=== PATIENT | female | born 1975 | race American Indian/Alaskan Native ===

== ENCOUNTER 2016-06-22 09:57 | Emergency (ER) | payer MEDICAID ==
--- NOTE | 2016-06-22 12:30 | Emergency Department Report ---
Entered by DELMAR LARA, acting as scribe for RUBEN STEWART PA. Chief Complaint: Abdominal Pain Stated Complaint: DIFFICULTY URINATING,BACK PAIN Time Seen by Provider: 06/22/16 12:08 - HPI History of Present Illness: 41 y/o female presents c/o inability to void since 2 days ago. Sx include fever and chills. Pt notes Hx of kidney stones and kidney infection. - ROS Review of Systems: as noted in HPI - Exam Vital Signs: Vital Signs 06/22/16 12:00 Temperature 98.2 F Pulse Rate 68 Respiratory 16 Rate Blood Pressure 150/100 O2 Sat by Pulse 100 Oximetry Physical Exam: General: 41 y/o female in no acute distress. Well-developed, well-nourished. CV: Regular rate and rhythm. No murmurs rubs or gallops. Lungs: Clear to auscultation bilaterally. Abdomen: abd distended and TTP. No guarding. Normal bowel sounds. Mini Neuro: Alert and oriented 3. MSE screening note: Focused history and physical exam performed. Due to findings the following was ordered: ED Disposition for MSE Condition: Stable Instructions: Abdominal Pain (ED) This documentation as recorded by the scribe,DELMAR LARA,accurately reflects the service I personally performed and the decisions made by me,RUBEN STEWART PA.
[2016-06-22 12:34] LABS: Basophils % (Auto) 0.4 % (0.0-1.8); Eosinophils % (Auto) 1.6 % (0.0-4.3); Hematocrit 38.3 % (30.3-42.9); Hemoglobin 12.5 gm/dl (10.1-14.3); Mean Corpuscular HGB Conc 33 % (30-34); Mean Corpuscular Hemoglobin 26 pg (28-32); Mean Corpuscular Volume 80 fl (79-97); Platelet Count 276 K/mm3 (140-440); Red Blood Count 4.76 M/mm3 (3.65-5.03); Red Cell Distribution Width 16.1 % (13.2-15.2); White Blood Count 6.4 K/mm3 (4.5-11.0)
[2016-06-22 12:48] LABS: Alanine Aminotransferase 41 units/L (7-56); Albumin 3.7 g/dL (3.9-5); Albumin/Globulin Ratio 0.8 %; Alkaline Phosphatase 89 units/L (35-129); Anion Gap 17 mmol/L; BUN/Creatinine Ratio 13.33; Blood Urea Nitrogen 8 mg/dL (7-17); Calcium 9.4 mg/dL (8.4-10.2); Carbon Dioxide 25 mmol/L (22-30); Chloride 99.5 mmol/L (98-107); Glucose 71 mg/dL (65-100); Lipase 30 units/L (13-60); Potassium 4.2 mmol/L (3.6-5.0); Sodium 137 mmol/L (137-145); Total Protein 8.1 g/dL (6.3-8.2)
[2016-06-22 13:32] LABS: Bilirubin,Urine NEG (Negative); Blood,Urine NEG (Negative); Ketones,Urine NEG (Negative); Leukocyte Esterase,Urine NEG (Negative); Nitrite,Urine NEG (Negative); Protein,Urine <15 mg/dL mg/dL (Negative); Urobilinogen,Urine < 2.0 mg/dL (<2.0); WBC,Urine < 1.0 /HPF (0.0-6.0)
[2016-06-22 13:34] LABS: RBC,Urine < 1.0 /HPF (0.0-6.0)
--- NOTE | 2016-06-22 15:32 | Cat Scan Report ---
CT of the abdomen and pelvis without contrast. History: Flank pain. Findings: There are 3 stones in the right kidney, the largest of which measures 4 mm in diameter. A 3.8 center in diameter cyst is seen in the upper pole of the right kidney. A 1 cm cyst is in the lower pole of the right kidney. 3 tiny stones measuring 2 mm each are seen in the left kidney. There is no evidence of hydronephrosis or ureteral dilatation. The abdominal viscera are otherwise unremarkable. No abnormal fluid collections or mesenteric inflammation is seen. Impression: Bilateral nephrolithiasis without obstruction. 2. 2 right renal cysts are described.
[2016-06-22] MEDS ORDERED: NACL 0.9% 1000 ML 1,000 ML IV ONE (15:52)
[2016-06-22] MEDS ORDERED: TORADOL IV ONE (15:54)
[2016-06-22 17:30] VITALS: BP 124/78
--- NOTE | 2016-06-22 18:02 | Emergency Department Report ---
ED Female HPI - General Chief complaint: Abdominal Pain Stated complaint: DIFFICULTY URINATING,BACK PAIN Time Seen by Provider: 06/22/16 12:18 Source: patient Mode of arrival: Ambulatory Limitations: No Limitations - History of Present Illness Initial comments: Patient reports inability to urinate for approximately 2 days. Reports hx of kidney stones. reports that she had similar symptoms with kidney stones Complaint: other (suprapubic pain) -: Gradual, days(s) Location: suprapubic Radiation: non-radiating Severity: mild Severity scale (0 -10): 3 Quality: aching Consistency: constant Improves with: none Worsens with: none Are you Now?: No Associated Symptoms: abdominal pain. denies: vaginal discharge, vaginal bleeding, nausea/vomiting, fever/chills, headaches, loss of appetite, dysuria, hematuria, rash, seizure, shortness of breath, syncope, weakness - Related Data Home Medications Medication Instructions Recorded Confirmed Last Taken No Known Home Medications [No 06/22/16 06/22/16 Unknown Reported Home Medications] Allergies Allergy/AdvReac Type Severity Reaction Status Date / Time No Known Allergies Allergy Verified 04/10/16 15:38 ED Review of Systems ROS: Stated complaint: DIFFICULTY URINATING,BACK PAIN Other details as noted in HPI Other: GENERAL: No weight change, fatigue, weakness, fever, chills, or night sweats SKIN: No changes in skin or hair, no itching, no rashes, no jaundice HEAD: No trauma, headache, or visual changes EYES: No blurriness, tearing, itching, acute visual loss, conjunctival discoloration, or scleral icterus EARS: No hearing loss, tinnitus, vertigo, or earache NOSE: No rhinorrhea, stuffiness, sneezing, itching, or epistaxis MOUTH: No bleeding gums, hoarseness, sore throat, or swelling CARDIAC: No new murmur, chest pain, palpitations, dyspnea on exertion, orthopnea , PND, or edema RESPIRATORY: No shortness of breath, wheeze, cough, sputum production, hemoptysis, pneumonia, asthma, bronchitis, or emphysema GI: No change in appetite, vomiting, dysphagia, change in bowel frequency, diarrhea, constipation, bleeding, hematemesis, melena, hematochezia MUSCULOSKELETAL: No muscle weakness, joint stiffness, decrease in range of motion, redness, swelling, tenderness NEUROLOGIC: No loss of sensation, numbness, tingling, tremors, weakness, paralysis, seizures HEMATOLOGIC: No anemia, easy bruising, bleeding, petechiae, or purpura ENDOCRINE: No hot or cold intolerance, sweating, polyuria, polydipsia or, polyphagia no thyroid problems PSYCHIATRIC: No change in mood, no anxiety, no depression ED Past Medical Hx - Past Medical History Hx Heart Attack/AMI: No Hx Congestive Heart Failure: No Hx Diabetes: No Hx Kidney Stones: Yes Hx Asthma: No Hx COPD: No - Surgical History Hx Cholecystectomy: Yes Additional Surgical History: TUBAL LIGATION AND REVERSAL. . KIDNEY STONE REMOVED - Social History Smoking Status: Never Smoker Substance Use Type: Alcohol - Medications Home Medications: Home Medications Medication Instructions Recorded Confirmed Last Taken Type No Known Home Medications [No 06/22/16 06/22/16 Unknown History Reported Home Medications] ED Physical Exam - General Limitations: No Limitations - Other Other exam information: GENERAL: Patient in no acute distress HEAD: Normocephalic, atraumatic EYES: PERRLA, EOM intact, no scleral icterus, no papilledema, no conjunctival hemorrhage, visual morris and acuity wnl, NOSE: No tenderness, discharge, sinus tenderness MOUTH: No erythema, bleeding, exudate HEART: Regular rate and rhythm, no murmur, S1-S2 are auscultated, pulses are symmetric LUNGS: No wheezing, rales, rhonchi, bilateral breath sounds ABDOMEN: Normal bowel sounds, no tenderness, no rebound, no guarding, no masses , no CVA tenderness MUSCULOSKELETAL: Normal joint range of motion, no redness, no swelling, no tenderness NEUROLOGIC: GCS 15, Alert and Oriented x3, Cranial nerves intact, normal sensation, normal strength, normal gait, no cerebellar deficit PSYCHIATRIC: No homicidal or suicidal ideation, no anxiety, no depression, no hallucinations SKIN: Skin is warm and dry, no wounds, no rashes ED Course Vital Signs 06/22/16 06/22/16 06/22/16 12:00 16:37 17:05 Temperature 98.2 F Pulse Rate 68 Respiratory 16 18 18 Rate Blood Pressure 150/100 Blood Pressure [Left] O2 Sat by Pulse 100 100 Oximetry 06/22/16 17:29 Temperature Pulse Rate 68 Respiratory 18 Rate Blood Pressure Blood Pressure 124/78 [Left] O2 Sat by Pulse 100 Oximetry ED Medical Decision Making - Lab Data Result diagrams: 06/22/16 12:12 06/22/16 12:12 - Radiology Data Radiology results: report reviewed - Medical Decision Making Patient comfortable. Updated with results. Plan discharge with outpatient follow-up. Patient agrees with plan and will return if symptoms worsen. Critical care attestation.: If time is entered above; I have spent that time in minutes in the direct care of this critically ill patient, excluding procedure time. ED Disposition Clinical Impression: Urinary bladder incontinence Qualifiers: Urinary Incontinence type: unspecified incontinence Qualified Code(s): R32 - Unspecified urinary incontinence Disposition: DISCHARGED TO HOME OR SELFCARE Is pt being admited?: No Condition: Stable Instructions: Urinary Incontinence (ED), Abdominal Pain (ED) Referrals: PRIMARY CARE, [Primary Care Provider] - 3-5 Days PRIYA BURKETT MD [Staff Physician] - [facility] Forms: Work/School Release Form(ED) Time of Disposition: 18:01
== END 2016-06-22 18:22 | disposition home or self-care (01) ==
LOC: ED 09:57
DX: R32 Unspecified urinary incontinence (principal)
CPT/HCPCS: 36415; 51702; 74176; 80053; 81001; 83690; 84703; 85025; 87086; 96361; 96374; 99284; J1885; J7030

== ENCOUNTER 2016-07-03 04:20 | Emergency (ER) | payer MEDICAID ==
[2016-07-03] MEDS ORDERED: DILAUDID ONE (04:25)
[2016-07-03] MEDS ORDERED: DILAUDID IV ONE ×3 (04:33→08:39)
[2016-07-03 04:50] LABS: Basophils % (Auto) 0.8 % (0.0-1.8); Eosinophils % (Auto) 0.4 % (0.0-4.3); Hematocrit 35.9 % (30.3-42.9); Hemoglobin 11.7 gm/dl (10.1-14.3); Mean Corpuscular HGB Conc 33 % (30-34); Mean Corpuscular Hemoglobin 27 pg (28-32); Mean Corpuscular Volume 81 fl (79-97); Platelet Count 351 K/mm3 (140-440); Red Blood Count 4.43 M/mm3 (3.65-5.03); White Blood Count 11.8 K/mm3 (4.5-11.0)
[2016-07-03 05:14] LABS: Alanine Aminotransferase 25 units/L (7-56); Albumin 3.7 g/dL (3.9-5); Alkaline Phosphatase 78 units/L (35-129); Anion Gap 15 mmol/L; BUN/Creatinine Ratio 18.57; Blood Urea Nitrogen 13 mg/dL (7-17); Calcium 8.7 mg/dL (8.4-10.2); Carbon Dioxide 25 mmol/L (22-30); Chloride 102.6 mmol/L (98-107); Glucose 85 mg/dL (65-100); Lipase 30 units/L (13-60); Potassium 4.4 mmol/L (3.6-5.0); Sodium 138 mmol/L (137-145); Total Protein 7.3 g/dL (6.3-8.2)
--- NOTE | 2016-07-03 06:14 | Cat Scan Report ---
FINAL REPORT EXAM: CT ABDOMEN PELVIS WO CON HISTORY: abd pain, urethral stent insertion 2 days ago TECHNIQUE: Noncontrast CT of the abdomen and pelvis performed. No IV or gastrointestinal contrast was administered. Coronal and sagittal reformatted images were obtained. PRIORS: 06/22/2016 FINDINGS: There are several small nonobstructing right intrarenal calculi. There is a left ureteral stent extending from renal pelvis to the bladder. Despite the presence of a ureteral stent, there is mild left hydronephrosis. There is a small gas bubble within the left kidney/collecting system which is probably postprocedural. There is an unchanged 3.8 cm renal cyst. There is no abdominal aortic aneurysm. There is no evidence of intestinal obstruction. The appendix is normal. There is no free intraperitoneal air. The bladder is unremarkable. There is no abnormal pelvic mass or fluid collections seen. IMPRESSION: There is a left ureteral stent. Despite presence of the stent, there is mild left hydronephrosis. Small gas bubble in the left kidney is probably postprocedural. Several small nonobstructing right intrarenal calculi seen.
[2016-07-03] MEDS ORDERED: NACL 0.9% 1000 ML 1,000 ML IV ONE (06:29)
[2016-07-03 06:51] LABS: Urine Drugs of Abuse Note Disclamer
[2016-07-03] MEDS ORDERED: ROCEPHIN/NS 1 GM/50 ML 1 GM/50 ML BAG IV ONE (07:27)
[2016-07-03 07:30] LABS: Bilirubin,Urine NEG (Negative); Blood,Urine LG (Negative); Ketones,Urine NEG (Negative); Leukocyte Esterase,Urine MOD (Negative); Mucus,Urine FEW /HPF; Nitrite,Urine NEG (Negative); Urobilinogen,Urine < 2.0 mg/dL (<2.0)
[2016-07-03 07:41] LABS: RBC,Urine > 182.0 /HPF (0.0-6.0); WBC,Urine > 182.0 /HPF (0.0-6.0)
--- NOTE | 2016-07-03 10:12 | Emergency Department Report ---
ED Abdominal Pain HPI - General Chief Complaint: Abdominal Pain Stated Complaint: ABD PAIN Time Seen by Provider: 07/03/16 06:21 Source: patient, EMS Mode of arrival: Stretcher Limitations: No Limitations - History of Present Illness Initial Comments: Patient had a stent placed on 07/01. At 10 AM this morning she noted gross hematuria. She's been having some right flank pain and left lower quadrant pain. She denies fever or chills. She was given Dilaudid prior to my examination for analgesia. She reported persistent pain. She has not been vomiting. MD Complaint: abdominal pain -: Gradual, hour(s) Location: LLQ Radiation: none Migration to: no migration Severity scale (0 -10): 8 Quality: cramping Consistency: constant Improves With: nothing Worsens With: nothing Associated Symptoms: denies other symptoms - Related Data Home Medications Medication Instructions Recorded Confirmed Last Taken HYDROcodone/APAP 5-325 [[place] 1 each PO Q6HR PRN 06/25/16 07/03/16 07/03/16 5/325] Previous Rx's Medication Instructions Recorded Last Taken Type Cefuroxime [Ceftin] 250 mg PO Q12H #14 tablet 07/03/16 Unknown Rx oxyCODONE /ACETAMINOPHEN [Percocet 1 tab PO Q6HR PRN #14 tablet 07/03/16 Unknown Rx 5/325] Allergies Allergy/AdvReac Type Severity Reaction Status Date / Time No Known Allergies Allergy Verified 04/10/16 15:38 ED Review of Systems ROS: Stated complaint: ABD PAIN Other details as noted in HPI Constitutional: denies: chills, fever Eyes: denies: eye pain, eye discharge, vision change ENT: denies: ear pain, throat pain Respiratory: denies: cough, shortness of breath, wheezing Cardiovascular: denies: chest pain, palpitations Endocrine: no symptoms reported Gastrointestinal: as per HPI, abdominal pain. denies: nausea, diarrhea Genitourinary: hematuria. denies: urgency, dysuria, discharge Musculoskeletal: denies: back pain, joint swelling, arthralgia Skin: denies: rash, lesions Neurological: denies: headache, weakness, paresthesias Psychiatric: denies: anxiety, depression Hematological/Lymphatic: denies: easy bleeding, easy bruising ED Past Medical Hx - Past Medical History Hx Hypertension: No Hx Heart Attack/AMI: No Hx Congestive Heart Failure: No Hx Diabetes: No Hx Renal Disease: Yes (kidney stones) Hx Headaches / Migraines: Yes (MIGRAINES) Hx Kidney Stones: Yes Hx Asthma: No Hx COPD: No Additional medical history: As far as I can tell there were no stones found on retrograde urethrogram prior to left ureteral stent. There was some edema noted. There are no stones in the left kidney per prior CT examination. - Surgical History Hx Cholecystectomy: Yes Additional Surgical History: TUBAL LIGATION AND REVERSAL. . KIDNEY STONE REMOVED. urethral stents - Social History Smoking Status: Never Smoker Substance Use Type: None - Medications Home Medications: Home Medications Medication Instructions Recorded Confirmed Last Taken Type HYDROcodone/APAP 5-325 [[place] 1 each PO Q6HR PRN 06/25/16 07/03/16 07/03/16 History 5/325] Cefuroxime [Ceftin] 250 mg PO Q12H #14 tablet 07/03/16 Unknown Rx oxyCODONE /ACETAMINOPHEN [Percocet 1 tab PO Q6HR PRN #14 tablet 07/03/16 Unknown Rx 5/325] ED Physical Exam - General Limitations: No Limitations General appearance: alert, in no apparent distress - Head Head exam: Present: atraumatic, normocephalic - Eye Eye exam: Present: normal appearance. Absent: scleral icterus - ENT ENT exam: Present: normal exam, mucous membranes moist - Neck Neck exam: Present: normal inspection - Respiratory Respiratory exam: Present: normal lung sounds bilaterally. Absent: respiratory distress - Cardiovascular Cardiovascular Exam: Present: regular rate, normal rhythm. Absent: systolic murmur, diastolic murmur, rubs, gallop - GI/Abdominal GI/Abdominal exam: Present: soft, normal bowel sounds. Absent: distended, tenderness, guarding, rebound, rigid - Extremities Exam Extremities exam: Present: normal inspection - Back Exam Back exam: Present: normal inspection - Neurological Exam Neurological exam: Present: alert, oriented X3, CN II-XII intact. Absent: motor sensory deficit - Psychiatric Psychiatric exam: Present: normal affect, normal mood - Skin Skin exam: Present: warm, dry, intact, normal color. Absent: rash ED Course Vital Signs 07/03/16 07/03/16 07/03/16 04:18 04:20 04:27 Temperature 98.6 F Pulse Rate 56 L 66 Respiratory 16 12 Rate Blood Pressure 181/85 181/85 Blood Pressure 181/85 [Right] O2 Sat by Pulse 98 100 100 Oximetry 07/03/16 07/03/16 07/03/16 04:31 04:41 04:51 Temperature Pulse Rate 60 63 52 L Respiratory 12 16 14 Rate Blood Pressure 146/86 146/86 134/73 Blood Pressure [Right] O2 Sat by Pulse 100 98 99 Oximetry 07/03/16 07/03/16 07/03/16 05:00 05:11 05:21 Temperature Pulse Rate 54 L 61 55 L Respiratory 8 L 9 L 19 Rate Blood Pressure 130/79 130/79 140/83 Blood Pressure [Right] O2 Sat by Pulse 99 96 98 Oximetry 07/03/16 07/03/16 07/03/16 05:41 05:47 05:51 Temperature Pulse Rate 64 61 61 Respiratory 20 8 L Rate Blood Pressure 150/67 Blood Pressure 151/67 [Right] O2 Sat by Pulse 99 98 97 Oximetry 07/03/16 07/03/16 07/03/16 06:00 06:11 07:00 Temperature Pulse Rate 142 H 53 L 61 Respiratory 33 H 17 13 Rate Blood Pressure 135/77 135/77 Blood Pressure 122/87 [Right] O2 Sat by Pulse 96 95 98 Oximetry 07/03/16 07/03/16 07/03/16 07:30 08:00 08:45 Temperature Pulse Rate 64 70 Respiratory 17 17 14 Rate Blood Pressure Blood Pressure 122/61 112/68 [Right] O2 Sat by Pulse 95 98 Oximetry 07/03/16 07/03/16 07/03/16 08:52 09:22 09:40 Temperature Pulse Rate 65 Respiratory 14 12 15 Rate Blood Pressure Blood Pressure 124/73 [Right] O2 Sat by Pulse 95 Oximetry - Reevaluation(s) Reevaluation #1: Patient's pain improved with additional Dilaudid. However did not resolve. Gave the patient ceftriaxone and culture the urine. I spoke to . he recommended that the patient come to the office for possible stent removal. I will give the patient a prescription for Ceftin. 07/03/16 10:10 ED Medical Decision Making - Lab Data Result diagrams: 07/03/16 04:29 07/03/16 04:29 Laboratory Results - last 24 hr 07/03/16 07/03/16 07/03/16 04:29 04:29 04:29 WBC 11.8 H RBC 4.43 Hgb 11.7 Hct 35.9 MCV 81 MCH 27 L MCHC 33 RDW 17.0 H Plt Count 351 Lymph % (Auto) 30.6 [place] % (Auto) 7.3 Eos % (Auto) 0.4 Baso % (Auto) 0.8 Lymph # 3.6 [place] # 0.9 H Eos # 0.0 Baso # 0.1 Seg Neutrophils % 60.9 Seg Neutrophils # 7.2 Sodium 138 Potassium 4.4 Chloride 102.6 Carbon Dioxide 25 Anion Gap 15 BUN 13 Creatinine 0.7 Estimated GFR > 60 BUN/Creatinine Ratio 18.57 Glucose 85 Calcium 8.7 Total Bilirubin 0.20 AST 36 ALT 25 Alkaline Phosphatase 78 Total Protein 7.3 Albumin 3.7 L Albumin/Globulin Ratio 1.0 Lipase 30 HCG, Qual Negative Urine Color Urine Turbidity Urine pH Ur Specific [place] Urine Protein Urine Glucose (UA) Urine Ketones Urine Blood Urine Nitrite Urine Bilirubin Urine Urobilinogen Ur Leukocyte Esterase Urine WBC (Auto) Urine RBC (Auto) U Epithel Cells (Auto) Urine WBC Clumps Urine Mucus Urine Opiates Screen Urine Methadone Screen Ur Barbiturates Screen Ur Phencyclidine Scrn Ur Amphetamines Screen U Benzodiazepines Scrn Urine Cocaine Screen U Marijuana (THC) Screen Drugs of Abuse Note 07/03/16 07/03/16 06:42 06:42 WBC RBC Hgb Hct MCV MCH MCHC RDW Plt Count Lymph % (Auto) [place] % (Auto) Eos % (Auto) Baso % (Auto) Lymph # [place] # Eos # Baso # Seg Neutrophils % Seg Neutrophils # Sodium Potassium Chloride Carbon Dioxide Anion Gap BUN Creatinine Estimated GFR BUN/Creatinine Ratio Glucose Calcium Total Bilirubin AST ALT Alkaline Phosphatase Total Protein Albumin Albumin/Globulin Ratio Lipase HCG, Qual Urine Color Red Urine Turbidity Cloudy Urine pH 6.0 Ur Specific [place] 1.017 Urine Protein 100 mg/dl Urine Glucose (UA) Neg Urine Ketones Neg Urine Blood Lg Urine Nitrite Neg Urine Bilirubin Neg Urine Urobilinogen < 2.0 Ur Leukocyte Esterase Mod Urine WBC (Auto) > 182.0 H Urine RBC (Auto) > 182.0 U Epithel Cells (Auto) 7.0 Urine WBC Clumps 3+ Urine Mucus Few Urine Opiates Screen Presumptive positive Urine Methadone Screen Presumptive negative Ur Barbiturates Screen Presumptive negative Ur Phencyclidine Scrn Presumptive negative Ur Amphetamines Screen Presumptive negative U Benzodiazepines Scrn Presumptive negative Urine Cocaine Screen Presumptive negative U Marijuana (THC) Screen Presumptive negative Drugs of Abuse Note Disclamer Critical care attestation.: If time is entered above; I have spent that time in minutes in the direct care of this critically ill patient, excluding procedure time. ED Disposition Clinical Impression: History of ureter stent UTI (urinary tract infection) Qualifiers: Urinary tract infection type: site unspecified Hematuria presence: with hematuria Qualified Code(s): N39.0 - Urinary tract infection, site not specified ; R31.9 - Hematuria, unspecified Abdominal pain Qualifiers: Abdominal location: left lower quadrant Qualified Code(s): R10.32 - Left lower quadrant pain Disposition: DISCHARGED TO HOME OR SELFCARE Is pt being admited?: No Does the pt Need Aspirin: No Condition: Stable Instructions: Abdominal Pain (ED), Urinary Tract Infection in Women (ED) Additional Instructions: Dr. Lee will be expecting you in his office. He may go there directly. Rx for UTI. Follow-up on urine culture. Prescriptions: Cefuroxime [Ceftin] 250 mg PO Q12H #14 tablet oxyCODONE /ACETAMINOPHEN [Percocet 5/325] 1 tab PO Q6HR PRN #14 tablet PRN Reason: Pain Referrals: PRIMARY CARE, [Primary Care Provider] - 3-5 Days PRIYA BURKETT MD [Staff Physician] - [facility] Time of Disposition: 10:14
[2016-07-03 11:01] VITALS: BP 118/71
== END 2016-07-03 10:25 | disposition home or self-care (01) ==
LOC: ED 04:20
DX: R31.9 Hematuria, unspecified (principal); R10.32 Left lower quadrant pain; G43.909 Migraine, unspecified, not intractable, without status migrainosus; Z96.89 Presence of other specified functional implants; N13.2 Hydronephrosis with renal and ureteral calculous obstruction; E86.0 Dehydration
CPT/HCPCS: 36415; 51701; 74176; 80053; 80307; 81001; 83690; 84703; 85025; 87086; 96361; 96365; 96375; 96376; 99284; J0696; J1170; J7030

== ENCOUNTER 2019-02-28 18:32 | Observation (INO) | payer MEDICAID, OTHER, SELFPAY ==
[2019-02-28 19:06] LABS: Basophils % (Auto) 0.4 % (0.0-1.8); Eosinophils # (Auto) 0.1 K/mm3 (0.0-0.4); Eosinophils % (Auto) 1.2 % (0.0-4.3); Hematocrit 37.8 % (30.3-42.9); Hemoglobin 12.6 gm/dl (10.1-14.3); Lymphocytes # (Auto) 2.6 K/mm3 (1.2-5.4); Lymphocytes % (Auto) 34.3 % (13.4-35.0); Mean Corpuscular HGB Conc 33 % (30-34); Mean Corpuscular Volume 86 fl (79-97); Monocytes # (Auto) 0.7 K/mm3 (0.0-0.8); Monocytes % (Auto) 9.6 % (0.0-7.3); Platelet Count 252 K/mm3 (140-440); Red Cell Distribution Width 15.1 % (13.2-15.2)
--- NOTE | 2019-02-28 19:06 | Cat Scan Report ---
CT head/brain wo con INDICATION / CLINICAL INFORMATION: 44 years Female; neuro deficits <6hrs or sx present upon awakening. TECHNIQUE: Routine CT head without contrast. All CT scans at this location are performed using CT dos e reduction for ALARA by means of automated exposure control. COMPARISON: None. FINDINGS: BRAIN / INTRACRANIAL CONTENTS: The brain demonstrates appropriate attenuation. The ventricular system is within normal limits in size and configuration. There is no clear CT evidence of acute intracrani al hemorrhage or significant mass effect. ORBITS: No significant abnormality of visualized orbits. SINUSES / MASTOIDS: There is mild focal opacification along the visualized lateral left maxillary sin us at. CRANIOCERVICAL JUNCTION: No significant abnormality. ADDITIONAL FINDINGS: None. IMPRESSION: 1. There is no CT evidence of acute intracranial process. The study was specified as code stroke and called on the emergent basis to Dr. Villanueva in the ER at 5 :59 PM Central standard time. Signer Name: Lui Fortune MD Signed: 02/28/2019 7:02 PM Workstation Name: [id number]
--- NOTE | 2019-02-28 19:06 | Consultation ---
History of Present Illness History of present illness: [facility] Date of Service: 02/28/2019 18:41:29 Impression: RO Acute Ischemic Stroke Comments: 1. Cardioembolic stroke 2. Small vessel disease/lacune 3. Thromboembolic, [id number] mechanism 4. Hypercoagulable state-related infarct 5. Thrombotic mechanism, large artery disease 6. Transient ischemic attack Metrics: Last Known Well: Unknown [employer] Notification Time: 02/28/2019 18:40:55 Arrival Time: 02/28/2019 18:32:00 Stamp Time: 02/28/2019 18:41:29 Time First Login Attempt: 02/28/2019 18:52:00 Video Start Time: 02/28/2019 18:52:00 Symptoms: numbness NIHSS Start Assessment Time: 02/28/2019 18:57:25 Patient is not a candidate for tPA. Patient was not deemed candidate for tPA thrombolytics because of Last Well Known Above 4.5 Hours. Video End Time: 02/28/2019 19:04:53 CT head was reviewed. Advanced imaging CTA head and neck obtained. Radiologist was not called back for review of advanced imaging because imaging pending ER Physician notified of the decision on thrombolytics management on 02/28/2019 19:04:14 Our recommendations are outlined below. Recommendations: Activate Stroke Protocol Admission/Order Set Stroke/Telemetry Floor Neuro Checks Bedside Swallow Eval DVT Prophylaxis IV Fluids, Normal Saline Head of Bed Below 30 Degrees Euglycemia and Avoid Hyperthermia (PRN Acetaminophen) ASA Recommended Scan: MRI Head Without Contrast Lipid Panel to Be Obtained, if Not Done in the Last Three Months Therapies: Physical Therapy, Occupational Therapy, Speech Therapy Assessment When Applicable Dysphaghia Screen: Swallow Evaluation, Bedside NPO Until Swallow Evaluation DVT prophylaxis: Choice of Primary Team Disposition: Follow up with Teleneurology Follow up Sign Out: Discussed with Emergency Department Provider History of Present Illness: Patient is a 44 year old Female. Patient was brought by private transportation with symptoms of numbness 44 y/o woman presents to the ED with headache and right sided numbness and difficulty speaking. Symptoms started sometime this morning, but she cannot recall when it started. Emergent telestroke consult requested. CT head reviewed and case discussed with ED staff. CTA head/neck pending CT head was reviewed. Examination: 1A: Level of Consciousness - Alert; keenly responsive + 0 1B: Ask Month and Age - 1 Question Right + 1 1C: Blink Eyes & Squeeze Hands - Performs Both Tasks + 0 2: Test Horizontal Extraocular Movements - Normal + 0 3: Test Visual [place] - No Visual Loss + 0 4: Test Facial Palsy (Use Grimace if Obtunded) - Normal symmetry + 0 5A: Test Left Arm Motor Drift - No Drift for 10 Seconds + 0 5B: Test Right Arm Motor Drift - Drift, but doesn't hit bed + 1 6A: Test Left Leg Motor Drift - No Drift for 5 Seconds + 0 6B: Test Right Leg Motor Drift - Drift, but doesn't hit bed + 1 7: Test Limb Ataxia (FNF/Heel-Osman) - No Ataxia + 0 8: Test Sensation - Mild-Moderate Loss: Less Sharp/More Dull + 1 9: Test Language/Aphasia - Mild-Moderate Aphasia: Some Obvious Changes, Without Significant Limitation + 1 10: Test Dysarthria - Normal + 0 11: Test Extinction/Inattention - No abnormality + 0 NIHSS Score: 5 Patient was informed the Neurology Consult would happen via TeleHealth consult by way of interactive audio and video telecommunications and consented to receiving care in this manner. Due to the immediate potential for life-threatening deterioration due to underlying acute neurologic illness, I spent 15 minutes providing critical care. This time includes time for face to face visit via telemedicine, review of medical records, imaging studies and discussion of findings with providers, the patient and/or family. Dr Jayy Hooker [facility] Case [id number] Medications and Allergies Allergies Allergy/AdvReac Type Severity Reaction Status Date / Time No Known Allergies Allergy Verified 04/10/16 15:38 Home Medications Medication Instructions Recorded Confirmed Last Taken Type HYDROcodone/APAP 5-325 [[place] 1 each PO Q6HR PRN 06/25/16 07/03/16 07/03/16 History 5/325] cefUROXime [Ceftin] 250 mg PO Q12H #14 tablet 07/03/16 Unknown Rx oxyCODONE /ACETAMINOPHEN [Percocet 1 tab PO Q6HR PRN #14 tablet 07/03/16 Unknown Rx 325]
--- NOTE | 2019-02-28 19:12 | Progress Note ---
Subjective Date of service: 02/28/19 Interval history: patient seen in the CT scanner at time of the stroke alert exam shows right sided sensory loss mild facial numbness and slight speech slowing no gross motor weakness course of events from work til seen in ED a little bit hard to follw as she may have passed out but no direct witnesses at present appears grossly intat transfers on of stretcher very well personal review of the CT of head is normal there is hx of headaches so migraine is possible but she is not on meds recommend get ECHO if there is idea cardioembolic hx is not well stated w/u in ptogress reviewed all notes Objective - Laboratory Findings CBC and BMP: 02/28/19 18:58 Abnormal Lab Findings: Abnormal Labs 02/28/19 18:58 [place] % (Auto) 9.6 H
--- NOTE | 2019-02-28 19:14 | Emergency Department Report ---
ED Neuro Deficit HPI - General Chief Complaint: Neuro Symptoms/Deficit Stated Complaint: BLURRED VISION/RT SIDE NUMB Time Seen by Provider: 02/28/19 18:49 Source: patient Mode of arrival: Ambulatory Limitations: No Limitations - History of Present Illness Initial Comments: Patient is 44 years old female with no significant past medical history except for remote history of kidney stone. Patient presented to the ER by her own private vehicle stating that she is having difficulty speaking clearly, weakness to the right upper and lower extremity associated with numbness. Patient stated that she does not know exactly what was the time when symptoms started but she stated that started at work. She stated that she worked at night and to finish at 07 a.m. she stating that her symptoms most likely started around 1 AM this morning. She stated that her co-worker told her she was unresponsive for a while. Stroke protocol immediately initiated. Patient immediately moved to CT scan. Stroke tele neurologist immediately consulted. Location: speech, dysarthria, right arm, right leg Presenting Symptoms: Present: Weak/Paralyzed One Side, Unable to Speak Clearly History of same: No Place: work Context: sudden onset Associated Symptoms: denies other symptoms - Related Data Home Medications: Home Medications Medication Instructions Recorded Confirmed Last Taken HYDROcodone/APAP 5-325 [[place] 1 each PO Q6HR PRN 06/25/16 07/03/16 07/03/16 5/325] Previous Rx's Medication Instructions Recorded Last Taken Type cefUROXime [Ceftin] 250 mg PO Q12H #14 tablet 07/03/16 Unknown Rx oxyCODONE /ACETAMINOPHEN [Percocet 1 tab PO Q6HR PRN #14 tablet 07/03/16 Unknown Rx 5/325] Allergies/Adverse Reactions: Allergies Allergy/AdvReac Type Severity Reaction Status Date / Time No Known Allergies Allergy Verified 04/10/16 15:38 ED Review of Systems ROS: Stated complaint: BLURRED VISION/RT SIDE NUMB Other details as noted in HPI Comment: All other systems reviewed and negative Constitutional: denies: chills, fever Respiratory: denies: cough, shortness of breath, SOB with exertion Cardiovascular: denies: chest pain, palpitations Gastrointestinal: denies: abdominal pain, nausea, vomiting Neurological: weakness, numbness. denies: headache, paresthesias, confusion ED Past Medical Hx - Past Medical History Hx Hypertension: No Hx Heart Attack/AMI: No Hx Congestive Heart Failure: No Hx Diabetes: No Hx Renal Disease: Yes (kidney stones) Hx Headaches / Migraines: Yes (MIGRAINES) Hx Kidney Stones: Yes Hx Asthma: No Hx COPD: No Additional medical history: As far as I can tell there were no stones found on retrograde urethrogram prior to left ureteral stent. There was some edema noted. There are no stones in the left kidney per prior CT examination. - Surgical History Hx Cholecystectomy: Yes Additional Surgical History: TUBAL LIGATION AND REVERSAL. . KIDNEY STONE REMOVED. urethral stents - Social History Smoking Status: Never Smoker Substance Use Type: None - Medications Home Medications: Home Medications Medication Instructions Recorded Confirmed Last Taken Type HYDROcodone/APAP 5-325 [[place] 1 each PO Q6HR PRN 06/25/16 07/03/16 07/03/16 History 5/325] cefUROXime [Ceftin] 250 mg PO Q12H #14 tablet 07/03/16 Unknown Rx oxyCODONE /ACETAMINOPHEN [Percocet 1 tab PO Q6HR PRN #14 tablet 07/03/16 Unknown Rx 5/325] ED Neuro Physical Exam - General Limitations: No Limitations General appearance: alert, in no apparent distress Suspected Stroke: Yes - Head Head exam: Present: atraumatic, normocephalic, normal inspection - Eye Eye exam: Present: normal appearance, PERRL - ENT ENT exam: Present: normal exam, normal orophraynx, mucous membranes moist - Neck Neck exam: Present: normal inspection, full ROM. Absent: tenderness, meningismus, lymphadenopathy, thyromegaly - Respiratory Respiratory exam: Present: normal lung sounds bilaterally - Cardiovascular Cardiovascular Exam: Present: regular rate, normal rhythm, normal heart sounds - GI/Abdominal GI/Abdominal exam: Present: soft, normal bowel sounds. Absent: distended, tenderness, guarding, rebound, rigid, organomegaly, mass, bruit, pulsatile mass, hernia - Extremities Exam Extremities exam: Present: normal inspection, full ROM, normal capillary refill. Absent: pedal edema, calf tenderness - Back Exam Back exam: Present: normal inspection, full ROM. Absent: CVA tenderness (R), CVA tenderness (L), muscle spasm, paraspinal tenderness, vertebral tenderness, rash noted - Neurological Exam Neurological exam: Present: alert, oriented X3, CN II-XII intact - NIHSS Assessment Interval: Baseline 1a. Level of Consciousness: alert/keenly responsive 1b. LOC Questions: answers both correctly 1c. LOC Commands: performs tasks correctly 2. Best Gaze: normal 3. Visual: no visual loss 4. Facial Palsy: normal symmetrical movement 5b. Motor Arm Right: drift 5a. Motor Arm Left: no drift 6a. Motor Leg Left: no drift 6b. Motor Leg Right: drift 7. Limb Ataxia: absent 8. Sensory: mild/moderate sensory loss 9. Best Language: mild/moderate aphasia 10. Dysarthria: mild/moderate dysarthria 11. Extinction/Inattention: no abnormality Total Score: 5 Stroke Severity: Moderate Stroke - Psychiatric Psychiatric exam: Present: normal mood - Skin Skin exam: Present: warm, intact, normal color ED Course Vital Signs 02/28/19 02/28/19 02/28/19 19:43 19:50 19:51 Pulse Rate 66 66 Respiratory 16 13 13 Rate Blood Pressure 134/69 Blood Pressure 134/69 [Right] O2 Sat by Pulse 98 98 98 Oximetry 02/28/19 02/28/19 02/28/19 19:54 20:00 20:59 Pulse Rate 63 59 L 59 L Respiratory 14 29 H Rate Blood Pressure Blood Pressure 147/63 135/74 [Right] O2 Sat by Pulse 98 99 Oximetry - Lab Data Result diagrams: 02/28/19 18:58 02/28/19 18:58 Lab Results 02/28/19 02/28/19 02/28/19 Range/Units 18:48 18:58 18:58 WBC 7.7 (4.5-11.0) K/mm3 RBC 4.40 (3.65-5.03) M/mm3 Hgb 12.6 (10.1-14.3) gm/dl Hct 37.8 (30.3-42.9) % MCV 86 (79-97) fl MCH 29 (28-32) pg MCHC 33 (30-34) % RDW 15.1 (13.2-15.2) % Plt Count 252 (140-440) K/mm3 Lymph % (Auto) 34.3 (13.4-35.0) % [place] % (Auto) 9.6 H (0.0-7.3) % Eos % (Auto) 1.2 (0.0-4.3) % Baso % (Auto) 0.4 (0.0-1.8) % Lymph # 2.6 (1.2-5.4) K/mm3 [place] # 0.7 (0.0-0.8) K/mm3 Eos # 0.1 (0.0-0.4) K/mm3 Baso # 0.0 (0.0-0.1) K/mm3 Seg Neutrophils % 54.5 (40.0-70.0) % Seg Neutrophils # 4.2 (1.8-7.7) K/mm3 PT 13.1 (12.2-14.9) Sec. INR 0.98 (0.87-1.13) APTT 30.2 (24.2-36.6) Sec. Thrombin Time (15.1-19.6) Sec. Sodium (137-145) mmol/L Potassium (3.6-5.0) mmol/L Chloride (98-107) mmol/L Carbon Dioxide (22-30) mmol/L Anion Gap mmol/L BUN (7-17) mg/dL Creatinine (0.7-1.2) mg/dL Estimated GFR ml/min BUN/Creatinine Ratio % Glucose (65-100) mg/dL POC Glucose 91 (70-105) Calcium (8.4-10.2) mg/dL Troponin T (0.00-0.029) ng/mL 02/28/19 02/28/19 Range/Units 18:58 18:58 WBC (4.5-11.0) K/mm3 RBC (3.65-5.03) M/mm3 Hgb (10.1-14.3) gm/dl Hct (30.3-42.9) % MCV (79-97) fl MCH (28-32) pg MCHC (30-34) % RDW (13.2-15.2) % Plt Count (140-440) K/mm3 Lymph % (Auto) (13.4-35.0) % [place] % (Auto) (0.0-7.3) % Eos % (Auto) (0.0-4.3) % Baso % (Auto) (0.0-1.8) % Lymph # (1.2-5.4) K/mm3 [place] # (0.0-0.8) K/mm3 Eos # (0.0-0.4) K/mm3 Baso # (0.0-0.1) K/mm3 Seg Neutrophils % (40.0-70.0) % Seg Neutrophils # (1.8-7.7) K/mm3 PT (12.2-14.9) Sec. INR (0.87-1.13) APTT (24.2-36.6) Sec. Thrombin Time 16.1 (15.1-19.6) Sec. Sodium 138 (137-145) mmol/L Potassium 4.1 (3.6-5.0) mmol/L Chloride 102.6 (98-107) mmol/L Carbon Dioxide 23 (22-30) mmol/L Anion Gap 17 mmol/L BUN 12 (7-17) mg/dL Creatinine 0.7 (0.7-1.2) mg/dL Estimated GFR > 60 ml/min BUN/Creatinine Ratio 17 % Glucose 104 H (65-100) mg/dL POC Glucose (70-105) Calcium 8.8 (8.4-10.2) mg/dL Troponin T < 0.010 (0.00-0.029) ng/mL - EKG Data -: EKG Interpreted by Ri EKG shows normal: sinus rhythm Rate: normal Interpretation: no acute changes - Radiology Data Radiology results: report reviewed - Medical Decision Making Patient is 44 years old female with no significant past medical history except for remote history of kidney stone. Patient presented to the ER by her own private vehicle stating that she is having difficulty speaking clearly, weakness to the right upper and lower extremity associated with numbness. Patient stated that she does not know exactly what was the time when symptoms started but she stated that started at work. She stated that she worked at night and to finish at 07 a.m. she stating that her symptoms most likely started around 1 AM this morning. She stated that her co-worker told her she was unresponsive for a while. Stroke protocol immediately initiated. Patient immediately moved to CT scan. Stroke tele neurologist immediately consulted. Dr. Hooker, neurologist, he examined the patient and advised patient is not a TPA candidate. CTA of brain and neck obtained showed no significant stenosis. I discussed the patient with Dr. Renae, he agreed to admit the patient to medical service for further management. Critical Care Time: Yes Critical care time in (mins) excluding proc time.: 30 Critical care attestation.: If time is entered above; I have spent that time in minutes in the direct care of this critically ill patient, excluding procedure time. ED Disposition Clinical Impression: CVA (cerebral vascular accident) Disposition: DC-[id number] OP ADMIT IP TO THIS HOSP Is pt being admited?: Yes Condition: Stable
[2019-02-28 19:20] LABS: BUN/Creatinine Ratio 17; Blood Urea Nitrogen 12 mg/dL (7-17); Calcium 8.8 mg/dL (8.4-10.2); Hemolysis Index 5
[2019-02-28 19:47] LABS: INR 0.98 (0.87-1.13)
[2019-02-28 19:48] LABS: Partial Thromboplastin Time 30.2 Sec. (24.2-36.6)
--- NOTE | 2019-02-28 20:32 | Cat Scan Report ---
CT angio head INDICATION / CLINICAL INFORMATION: 44 years Female; r/o stroke. TECHNIQUE: Thin cut axial images obtained through the head during IV bolus contrast administration. S agittal, coronal, and 3 plane MIP reconstructions performed by the technologist. NASCET type criteria used evaluate stenoses. Automated exposure control utilized for radiation reduction purposes. COMPARISON: None available. FINDINGS: INTERNAL CAROTID ARTERIES: No significant narrowing appreciated. VERTEBROBASILAR SYSTEM: No significant narrowing appreciated. Mild narrowing of the distal, nondomina nt right vertebral artery suggested. DISTAL BRANCHES: Distal branches of the anterior, middle, and posterior cerebral arteries are fairly symmetric in appearance and number. There may be mild narrowing in the P1 segment on the left-not fel t to be significant. ANEURYSM: None identified. ADDITIONAL FINDINGS: Remainder of the surrounding soft tissues are grossly normal. IMPRESSION: No significant stenosis appreciated on this CTA of the head. Signer Name: Prashanth Baez MD, III Signed: 02/28/2019 8:27 PM Workstation Name: [id number]
--- NOTE | 2019-02-28 20:34 | Cat Scan Report ---
CT angio neck INDICATION / CLINICAL INFORMATION: 44 years Female; r/o stroke. TECHNIQUE: Thin cut axial images obtained through the head during IV bolus contrast administration. S agittal, coronal, and 3 plane MIP reconstructions performed by the technologist. NASCET type criteria used evaluate stenoses. All CT scans at this location are performed using CT dose reduction for ALAR A by means of automated exposure control. COMPARISON: None available. FINDINGS: ARCH: Normal aortic arch branching suggested. CAROTID ARTERIES: The visualized common and internal carotid arteries are widely patent. VERTEBRAL ARTERIES: Codominant vertebral system seen. No significant stenosis appreciated. ADDITIONAL FINDINGS: Sinus disease noted. IMPRESSION: No significant stenosis appreciated on this CTA of the neck. Signer Name: Prashanth Baez MD, III Signed: 02/28/2019 8:30 PM Workstation Name: [id number]
--- NOTE | 2019-02-28 20:47 | History and Physical Report ---
History of Present Illness Date of examination: 02/28/19 Date of admission: 02/28/2019 Chief complaint: R side numbness Medications and Allergies Allergies Allergy/AdvReac Type Severity Reaction Status Date / Time No Known Allergies Allergy Verified 04/10/16 15:38 Home Medications Medication Instructions Recorded Confirmed Last Taken Type HYDROcodone/APAP 5-325 [[place] 1 each PO Q6HR PRN 06/25/16 07/03/16 07/03/16 History 5/325] cefUROXime [Ceftin] 250 mg PO Q12H #14 tablet 07/03/16 Unknown Rx oxyCODONE /ACETAMINOPHEN [Percocet 1 tab PO Q6HR PRN #14 tablet 07/03/16 Unknown Rx 5/325] Exam - Physical Exam Narrative exam: - General Limitations: No Limitations General appearance: alert, in mild distress - Head Head exam: Present: normocephalic, normal inspection - Eye Eye exam: Present: normal appearance, PERRL - ENT ENT exam: Present: mucous membranes moist - Neck Neck exam: Present: normal inspection, - Respiratory Respiratory exam: Present: normal lung sounds bilaterally - Cardiovascular Cardiovascular Exam: Present: regular rate, normal rhythm, normal heart sounds - GI/Abdominal GI/Abdominal exam: Present: soft, normal bowel sounds. - Extremities Exam Extremities exam: Present: normal inspection, normal capillary refill. +numbness, R leg Drift - Neurological Exam Neurological exam: Present: alert, oriented X3, CN II-XII intact - Constitutional Vitals: Temp Pulse Resp BP Pulse Ox 59 L 14 147/63 98 02/28/19 20:00 02/28/19 20:00 02/28/19 20:00 02/28/19 20:00 Results - Labs CBC & Chem 7: 02/28/19 18:58 02/28/19 18:58 Labs: Laboratory Last Values WBC 7.7 K/mm3 (4.5-11.0) 02/28/19 18:58 RBC 4.40 M/mm3 (3.65-5.03) 02/28/19 18:58 Hgb 12.6 gm/dl (10.1-14.3) 02/28/19 18:58 Hct 37.8 % (30.3-42.9) 02/28/19 18:58 MCV 86 fl (79-97) 02/28/19 18:58 MCH 29 pg (28-32) 02/28/19 18:58 MCHC 33 % (30-34) 02/28/19 18:58 RDW 15.1 % (13.2-15.2) 02/28/19 18:58 Plt Count 252 K/mm3 (140-440) 02/28/19 18:58 Lymph % (Auto) 34.3 % (13.4-35.0) 02/28/19 18:58 [place] % (Auto) 9.6 % (0.0-7.3) H 02/28/19 18:58 Eos % (Auto) 1.2 % (0.0-4.3) 02/28/19 18:58 Baso % (Auto) 0.4 % (0.0-1.8) 02/28/19 18:58 Lymph # 2.6 K/mm3 (1.2-5.4) 02/28/19 18:58 [place] # 0.7 K/mm3 (0.0-0.8) 02/28/19 18:58 Eos # 0.1 K/mm3 (0.0-0.4) 02/28/19 18:58 Baso # 0.0 K/mm3 (0.0-0.1) 02/28/19 18:58 Seg Neutrophils % 54.5 % (40.0-70.0) 02/28/19 18:58 Seg Neutrophils # 4.2 K/mm3 (1.8-7.7) 02/28/19 18:58 PT 13.1 Sec. (12.2-14.9) 02/28/19 18:58 INR 0.98 (0.87-1.13) 02/28/19 18:58 APTT 30.2 Sec. (24.2-36.6) 02/28/19 18:58 Thrombin Time 16.1 Sec. (15.1-19.6) 02/28/19 18:58 Sodium 138 mmol/L (137-145) 02/28/19 18:58 Potassium 4.1 mmol/L (3.6-5.0) 02/28/19 18:58 Chloride 102.6 mmol/L (98-107) 02/28/19 18:58 Carbon Dioxide 23 mmol/L (22-30) 02/28/19 18:58 Anion Gap 17 mmol/L 02/28/19 18:58 BUN 12 mg/dL (7-17) 02/28/19 18:58 Creatinine 0.7 mg/dL (0.7-1.2) 02/28/19 18:58 Estimated GFR > 60 ml/min 02/28/19 18:58 BUN/Creatinine Ratio 17 % 02/28/19 18:58 Glucose 104 mg/dL (65-100) H 02/28/19 18:58 POC Glucose 91 (70-105) 02/28/19 18:48 Calcium 8.8 mg/dL (8.4-10.2) 02/28/19 18:58 Troponin T < 0.010 ng/mL (0.00-0.029) 02/28/19 18:58 - Imaging and Cardiology EKG: report reviewed (Sinus Rhythm) CT Scan - head: report reviewed (There is no CT evidence of acute intracranial process) Imaging and Cardiology: No significant stenosis appreciated on CTA of the head. No significant stenosis appreciated on this CTA of the neck.
[2019-02-28] MEDS ORDERED: MAGNESIUM HYDROXIDE (MOM) ORAL LIQD UDC PO PRN (20:49)
[2019-02-28] MEDS ORDERED: ONDANSETRON 4 MG/2 ML INJ IV PRN (20:49)
[2019-02-28] MEDS ORDERED: PROMETHAZINE 25 MG RECT SUPP PR PRN (20:49)
[2019-02-28] MEDS ORDERED: METOCLOPRAMIDE 10 MG TAB PO PRN (20:49)
--- NOTE | 2019-02-28 21:07 | History and Physical Report ---
History of Present Illness Chief complaint: I feel we, right side History of present illness: 44-year-old female with migraine headache, nephrolithiasis, presents to ED for evaluation. Patient was in her usual state of health around 1 AM this morning and subsequently went to work. Patient states that she felt an acute onset of right arm and leg weakness, as well as difficulty speaking. Patient is unsure of the onset of her symptoms. Patient states that she finished her shift at work and proceeded to [facility] for further care and evaluation. Patient transported to [facility] via private vehicle. Patient seen and evaluated in the emergency department and upon arrival a code stroke was called. Neurology team consulted. Tele-neurology consulted as well. Patient deemed not a candidate for TPA. Patient placed in observation status and admitted to medical floor for medical stabilization and evaluation. Patient initiated on stroke protocol. Prior admission on 04/11/2016 reviewed. No medication listed for reconciliation at the time of admission. Patient denies fever, chills, chest pain, palpitations, shortness of breath, bright red blood per rectum, skin rash, fall, syncope, productive cough, unilateral leg swelling, calf pain, prolonged travel, prolonged immobility, unilateral leg swelling, hemoptysis, individual/family history of DVT/PE/bleeding disorders/blood clotting disorder. Past History Past Medical History: migraines Past Surgical History: No surgical history, Other (Reviewed) Social history: single. denies: smoking, alcohol abuse, prescription drug abuse Family history: diabetes, hypertension Medications and Allergies Allergies Allergy/AdvReac Type Severity Reaction Status Date / Time No Known Allergies Allergy Verified 04/10/16 15:38 Home Medications Medication Instructions Recorded Confirmed Last Taken Type HYDROcodone/APAP 5-325 [[place] 1 each PO Q6HR PRN 06/25/16 07/03/16 07/03/16 History 5/325] cefUROXime [Ceftin] 250 mg PO Q12H #14 tablet 07/03/16 Unknown Rx oxyCODONE /ACETAMINOPHEN [Percocet 1 tab PO Q6HR PRN #14 tablet 07/03/16 Unknown Rx 5/325] Active Meds: Active Medications Acetaminophen (Tylenol) 650 mg PO Q4H PRN PRN Reason: Pain, Mild (1-3) Aspirin (Aspirin) 325 mg PO QDAY ZUNILDA Atorvastatin Calcium (Lipitor) 40 mg PO QHS ZUNILDA Bisacodyl (Dulcolax) 10 mg WA QDAY PRN PRN Reason: Constipation Magnesium Hydroxide (Milk Of Magnesia) 30 ml PO Q4H PRN PRN Reason: Constipation Metoclopramide HCl (Reglan) 10 mg PO Q6H PRN PRN Reason: Nausea And Vomiting Ondansetron HCl (Zofran) 4 mg IV Q8H PRN PRN Reason: Nausea And Vomiting Promethazine HCl (Phenergan) 25 mg [place] Q6H PRN PRN Reason: Nausea And Vomiting Sodium Chloride (Sodium Chloride Flush Syringe 10 Ml) 10 ml IV PRN PRN PRN Reason: LINE FLUSH Review of Systems Constitutional: no weight loss, no weight gain, no chills, no night sweats Ears, nose, mouth and throat: no ear discharge, no decreased hearing, no nose pain, no nasal congestion Breasts: no mass Cardiovascular: no chest pain, no orthopnea, no palpitations, no rapid/irregular heart beat Respiratory: no cough, no excessive sputum, no hemoptysis, no shortness of breath Gastrointestinal: no nausea, no vomiting, no constipation Genitourinary Female: no pelvic pain, no flank pain, no menorrhagia, no urgency, no urge incontinence Rectal: no pain, no incontinence, no bleeding Musculoskeletal: no neck stiffness, no shooting arm pain, no arm numb ness/tingling, no low back pain, no shooting leg pain, no leg numbness/tingling Integumentary: no rash, no pruritis, no redness, no sores, no wounds Neurological: weakness, numbness, lack of coordination, change in speech, no transient paralysis, no changes in smell/taste Psychiatric: no anxiety, no memory loss, no sleep disturbances, no hypersomnia, no change in appetite, no change in libido Endocrine: no cold intolerance, no polyphagia, no polydipsia, no polyuria Hematologic/Lymphatic: no easy bruising, no lymphedema Allergic/Immunologic: no urticaria, no allergic rhinitis, no anaphylaxis, no angioedema Exam - Constitutional Vitals: Temp Pulse Resp BP Pulse Ox 59 L 29 H 135/74 99 02/28/19 20:59 02/28/19 20:59 02/28/19 20:59 02/28/19 20:59 General appearance: Present: mild distress - EENT Eyes: Present: PERRL ENT: hearing intact, clear oral mucosa - Neck Neck: Present: supple, normal ROM - Respiratory Respiratory effort: normal Respiratory: bilateral: CTA - Cardiovascular Heart Sounds: Present: S1 & S2. Absent: rub, click - Extremities Extremities: pulses symmetrical, No edema Peripheral Pulses: within normal limits - Abdominal General gastrointestinal: Present: soft, non-tender, non-distended, normal bowel sounds Female genitourinary: Present: normal - Integumentary Integumentary: Present: clear, warm, dry - Musculoskeletal Musculoskeletal: right sided weakness - Psychiatric Psychiatric: appropriate mood/affect, intact judgment & insight - Neurologic Neurologic: CNII-XII intact, focal deficits, moves all extremities, no gait normal Results - Labs CBC & Chem 7: 02/28/19 18:58 02/28/19 18:58 Labs: Abnormal lab results 02/28/19 02/28/19 Range/Units 18:58 18:58 [place] % (Auto) 9.6 H (0.0-7.3) % Glucose 104 H (65-100) mg/dL Assessment and Plan - Patient Problems (1) CVA (cerebral vascular accident) Status: Acute Qualifiers: Precerebral and cerebral artery: middle cerebral artery Laterality of affected vessel: left Plan to address problem: Stroke protocol: CT head, neurochecks, aspiration precautions, lipid panel, antiplatelet therapy, neurology consulted, carotid Doppler, echocardiogram, physical therapy, Occupational Therapy, speech therapy, (2) Right hemiparesis Status: Acute Plan to address problem: Physical therapy consulted. (3) Obesity (BMI 30.0-34.9) Status: Acute Plan to address problem: Balanced diet, increase physical activity at discharge (4) DVT prophylaxis Status: Acute Plan to address problem: SCD to bilateral lower extremity while in bed, patient ambulatory.
[2019-02-28] MEDS: ACETAMINOPHEN 325 MG TAB PO PRN (22:12)
[2019-03-01] MEDS ORDERED: MORPHINE 4 MG/1 ML INJ IV ONE ×2 (00:01→05:30)
[2019-03-01] MEDS ORDERED: ONDANSETRON 4 MG/2 ML INJ IV ONE (00:01)
[2019-03-01] MEDS ORDERED: ONDANSETRON 4 MG/2 ML INJ ONE ×2 (00:04→05:27)
[2019-03-01] MEDS ORDERED: MORPHINE 2 MG/1 ML INJ ONE ×2 (00:04→05:32)
--- NOTE | 2019-03-01 09:12 | Vascular Lab Report ---
BILATERAL CAROTID DOPPLER ULTRASOUND INDICATION : stroke TECHNIQUE: Grayscale and color Doppler imaging performed through the neck. COMPARISON: None FINDINGS: Right: There is no significant atherosclerotic disease. Peak systolic velocity in the CCA is 109 cm /s with end-diastolic velocity of 25 cm/s. Peak systolic velocity in the proximal ICA is 92 cm/s with end-diastolic velocity of 36 cm/s. ICA to CCA ratio is less than 2. There is antegrade flow in the ECA and the vertebral artery. Left: There is no significant atherosclerotic disease. Peak systolic velocity in the CCA is 97 cm/s w ith end-diastolic velocity of 27 cm/s. Peak systolic velocity in the proximal ICA is 88 cm/s with end -diastolic velocity of 31 cm/s. ICA to CCA ratio is less than 2. There is antegrade flow in the ECA and the vertebral artery. IMPRESSION: No hemodynamically significant stenosis by NASCET criteria. There is less than 50% lumina l narrowing throughout both carotid systems. Signer Name: Kenroy Choi Jr, MD Signed: 03/01/2019 9:08 AM Workstation Name: [id number]
--- NOTE | 2019-03-01 09:34 | Consultation ---
History of Present Illness Consult date: 03/01/19 Requesting physician: ALYCIA EAGLE Reason for Consult: poss cva Chief complaint: slurred speech and right sided weakness History of present illness: 44F w hx of migraines, arrives w acute onset of slurred speech, speech changes and right sided weakness, no clear onset time, arrived and tele neuro decided no tpa(outside window no clear LTKW), CTA h/n reviewed and agree, no concern for LVO, no a.fib on tele, no recurrent strokes while here, started on antiplt, CT head reviewed and neg., NIHSS ext at ~ 5 today Pt states she does have a MCADAMS, L temp area, pressure non throb, no photo, but +nausea no vomiting, 6/10 still c/o R sided numb and weak, unchanged no new neuro complaints, no new focal brain complaints no vertigo, no change of vision 'when i lift my head, my MCADAMS is worse and I feel worse' no prior strokes no prior MS no loc, or sz denies ill drug use chart reviewed no cortical deficits no dv + n/t on the Right face arm leg no sob cp no coag. issues on labs CMP CBC reviewed no neuro decline tele : stable , sinus no pain w eye movements no loss of visual acuity BP on arrival were normotensive for the most part Past History Past Medical History: migraines Past Surgical History: No surgical history, Other (Reviewed) Social history: single. denies: smoking, alcohol abuse, prescription drug abuse Family history: diabetes, hypertension Medications and Allergies Allergies Allergy/AdvReac Type Severity Reaction Status Date / Time No Known Allergies Allergy Verified 03/01/19 09:04 Home Medications Medication Instructions Recorded Confirmed Last Taken Type No Known Home Medications [No 03/01/19 03/01/19 Unknown History Reported Home Medications] Active Meds: Active Medications Acetaminophen (Tylenol) 650 mg PO Q4H PRN PRN Reason: Pain, Mild (1-3) Last Admin: 02/28/19 22:12 Dose: 650 mg Documented by: Aspirin (Aspirin) 325 mg PO QDAY ZUNILDA Atorvastatin Calcium (Lipitor) 40 mg PO QHS ZUNILDA Last Admin: 02/28/19 22:12 Dose: 40 mg Documented by: Bisacodyl (Dulcolax) 10 mg ND QDAY PRN PRN Reason: Constipation Magnesium Hydroxide (Milk Of Magnesia) 30 ml PO Q4H PRN PRN Reason: Constipation Metoclopramide HCl (Reglan) 10 mg PO Q6H PRN PRN Reason: Nausea And Vomiting Ondansetron HCl (Zofran) 4 mg IV Q8H PRN PRN Reason: Nausea And Vomiting Last Admin: 03/01/19 05:30 Dose: 4 mg Documented by: Promethazine HCl (Phenergan) 25 mg ND Q6H PRN PRN Reason: Nausea And Vomiting Sodium Chloride (Sodium Chloride Flush Syringe 10 Ml) 10 ml IV PRN PRN PRN Reason: LINE FLUSH Physical Examination - Vital Signs Vital Signs: Vital Signs Resp Pulse Ox 16 98 02/28/19 19:43 02/28/19 19:43 aaox4 no aphasia , no dysarthria no signs of cortical deficits CN 2-12 intact, except decreased LT sensation R Face v123 4/5 strength R UE LE w R UE pronator drift 5/5 L UE LE sensory: R UE LE decreased to LT diffuse coordination : intact tone symm dtr symm no extra movements neck supple no pain w eye movements no loss of visual acuity abd soft skin intact pulses good x 4 no asymm edema no d/c nose ears tongue midline VFF , no dv Results - Laboratory Findings CBC and BMP: 02/28/19 18:58 02/28/19 18:58 Abnormal Lab Findings: Abnormal Labs 02/28/19 02/28/19 18:58 18:58 Otero % (Auto) 9.6 H Glucose 104 H Assessment and Plan Right sided weakness and sensory loss w MCADAMS, in pt w no prior hx of stroke but does have migraine d/o, arriving w poss. complex migraine MCADAMS exacerbation vs stroke, unstable if stroke the likely subcortical small vessel thrombus off L MCA distribution acute isch. but I feel this is a migraine exacerbation CT head and CTA h/n all reassuring anti plt on board no recurrent stroke sx no a.fib no neuro decline cont. antiplt and statin ha1c and lipids cont. tele MCADAMS: analgesics , avoid triptans in pts w complex migraines MRI b if + then ECHO OT PT NPO until cleared to swallow check UDS check HCG
[2019-03-01] MEDS ORDERED: ASPIRIN 325 MG TAB PO SCH (10:00)
[2019-03-01] MEDS ORDERED: ASPIRIN 325 MG TAB ONE (10:16)
[2019-03-01 11:22] VITALS: BP 115/71
[2019-03-01 13:31] LABS: Chol/HDL Ratio 2.65 %
[2019-03-01] MEDS: ACETAMINOPHEN 325 MG TAB PO PRN (14:51)
--- NOTE | 2019-03-01 14:56 | Discharge Summary ---
Providers - Providers Date of Admission: 02/28/19 20:49 Date of discharge: 03/01/19 Attending physician: ALYCIA EAGLE 02/28/19 20:49 Occupational Therapy Evaluate and Treat [CONS] Routine Comment: Reason For Exam: Neuro deficits Physical Therapy Evaluation and Treat [CONS] Routine Comment: Reason For Exam: Neuro deficits 02/28/19 20:51 Consult to Physician [CONS] Routine Comment: Consulting Provider: ADEEL RHODES Physician Instructions: Reason For Exam: stroke Primary care physician: [employer] Hospitalization Condition: Stable Hospital course: Discharge diagnosis: Complex migraine Obesity (BMI 30.0-34.9) Time spent for discharge: 34 minutes Core Measure Documentation - Palliative Care Palliative Care/ Comfort Measures: Not Applicable - Core Measures Any of the following diagnoses?: none Exam - Constitutional Vitals: Temp Pulse Resp BP Pulse Ox 98.6 F 59 L 18 115/71 94 03/01/19 11:20 03/01/19 11:20 03/01/19 14:17 03/01/19 11:20 03/01/19 11:20 General appearance: Present: no acute distress, obese - EENT Eyes: Present: PERRL ENT: hearing intact, clear oral mucosa - Neck Neck: Present: supple, normal ROM - Respiratory Respiratory effort: normal Respiratory: bilateral: CTA - Cardiovascular Heart Sounds: Present: S1 & S2. Absent: rub, click - Extremities Extremities: pulses symmetrical, No edema Peripheral Pulses: within normal limits - Abdominal General gastrointestinal: Present: soft, non-tender, non-distended, normal bowel sounds - Integumentary Integumentary: Present: clear, warm, dry - Musculoskeletal Musculoskeletal: gait normal, strength equal bilaterally - Psychiatric Psychiatric: appropriate mood/affect, intact judgment & insight - Neurologic Neurologic: CNII-XII intact, other (right hand numbness) Plan Activity: advance as tolerated Weight Bearing Status: Weight Bear as Tolerated Diet: low fat, low salt Follow up with: JENNIFER DUNN MD [Primary Care Provider] - 7 Days FELICIANO MARSHALL MD [Staff Physician] - 7 Days Prescriptions: Butalb/Acetaminophen/Caffeine [Fioricet 50-300-40 mg CAP] 1 cap PO Q6HR PRN #10 cap PRN Reason: Headache
--- NOTE | 2019-03-01 17:41 | Magnetic Resonance Report ---
MRI BRAIN 03/01/2019 INDICATION / CLINICAL INFORMATION: possible cva. Right-sided numbness. Headaches. TECHNIQUE: Multiplanar, multisequence MR images of the brain were obtained. COMPARISON: CT brain 02/28/2019 FINDINGS: BRAIN / INTRACRANIAL CONTENTS: Unenhanced MR images of the brain demonstrate no evidence of acute int racranial abnormality. Ventricles and sulci are normal in size and shape. There is no evidence of acute ischemic injury, hemorrhage, or mass. A few nonspecific subcortical white matter T2 weighted hyperintensities are present in the high front al lobes bilaterally. Generally considered these to be of unlikely clinical significance in this sett ing. There are no abnormal extra-axial fluid collections. EXTRACRANIAL: Unremarkable CRANIOCERVICAL JUNCTION: No significant abnormality. VASCULAR FLOW-VOIDS: No significant abnormality. IMPRESSION: No acute abnormality. Signer Name: Dillon Schmidt MD Signed: 03/01/2019 5:37 PM Workstation Name: [id number]
== END 2019-03-01 18:59 | disposition home or self-care (01) ==
LOC: ED 18:32 → 3A 20:49 → 4A 23:50
PROVIDERS: ADMIT Internal Medicine; ATTEND Internal Medicine
DX: G43.809 Other migraine, not intractable, without status migrainosus (principal); I69.351 Hemiplegia and hemiparesis following cerebral infarction affecting right dominant side; E66.9 Obesity, unspecified; Z87.442 Personal history of urinary calculi; Z79.82 Long term (current) use of aspirin; Z79.899 Other long term (current) drug therapy; Z68.33 Body mass index [BMI] 33.0-33.9, adult
CPT/HCPCS: 36415; 70450; 70496; 70498; 70551; 80048; 80061; 82962; 84484; 85025; 85610; 85670; 85730; 93005; 93010; 93306; 93880; 96374; 96375; 96376; 97161; 97165; 99291; A9270; G0378; J2270; J2405; Q9967

== ENCOUNTER 2019-11-03 09:40 | Emergency (ER) | payer OTHER ==
[2019-11-03 10:27] LABS: Bilirubin,Urine NEG (Negative); Blood,Urine NEG (Negative); Color,Urine Yellow (Yellow); Mucus,Urine 3+ /HPF; Protein,Urine <15 mg/dL mg/dL (Negative); Urobilinogen,Urine < 2.0 mg/dL (<2.0)
[2019-11-03 10:28] LABS: HCG Qualitative,Urine Negative (Negative)
[2019-11-03 13:11] LABS: Basophils % (Auto) 0.5 % (0.0-1.8); Eosinophils # (Auto) 0.1 K/mm3 (0.0-0.4); Eosinophils % (Auto) 0.9 % (0.0-4.3); Hematocrit 38.2 % (30.3-42.9); Hemoglobin 12.8 gm/dl (10.1-14.3); Lymphocytes % (Auto) 35.7 % (13.4-35.0); Mean Corpuscular HGB Conc 34 % (30-34); Mean Corpuscular Volume 87 fl (79-97); Monocytes # (Auto) 0.5 K/mm3 (0.0-0.8); Monocytes % (Auto) 8.7 % (0.0-7.3); Platelet Count 241 K/mm3 (140-440); Red Blood Count 4.38 M/mm3 (3.65-5.03)
[2019-11-03 14:22] LABS: Alanine Aminotransferase 16 units/L (7-56); Albumin 3.7 g/dL (3.9-5); Blood Urea Nitrogen 12 mg/dL (7-17); Calcium 9.3 mg/dL (8.4-10.2); Hemolysis Index 29
[2019-11-03 14:28] LABS: BUN/Creatinine Ratio 20
--- NOTE | 2019-11-03 16:13 | Cat Scan Report ---
CTA chest with contrast INDICATION : pleuritic pain, SOB. TECHNIQUE: Axial imaging performed through the chest, with contrast bolus timing set to maximize opa cification of the pulmonary arteries. 3-plane MIP reformatted images were obtained. All CT scans at this location are performed using CT dose reduction for ALARA by means of automated exposure control. 100 mL of intravenous contrast administered. COMPARISON: CT chest from 08/04/2010 FINDINGS: Bolus: Contrast bolus timing is adequate. PTE: No filling defect is present to suggest PTE. Mediastinum: Heart and great vessels appear normal. No pathologic mediastinal adenopathy. Lungs: Lungs are clear. Upper abdomen: Limited imaging of the upper abdomen shows nothing acute. Bones: Degenerative changes in the spine with nothing acute. IMPRESSION: Negative for PTE. Clear lungs. Signer Name: Rip Dunbar MD Signed: 11/03/2019 4:09 PM Workstation Name: [id number]
[2019-11-03] MEDS ORDERED: dexAMETHasone 4 MG/ML VIAL IM ONE (16:29)
[2019-11-03] MEDS ORDERED: IBUPROFEN 600 MG TAB PO ONE (16:29)
--- NOTE | 2019-11-03 16:30 | Emergency Department Report ---
ED General Adult HPI - General Chief complaint: Abdominal Pain Stated complaint: RT SIDE PAINS Time Seen by Provider: 11/03/19 11:10 Source: patient Mode of arrival: Ambulatory Limitations: No Limitations - History of Present Illness Initial comments: Patient is a 44-year-old female presents emergency room with complaints of right upper back pain that began 5 days ago. Patient states that she feels significant pain when she takes a deep breath in. States that when she lays on that side the pain increases. She states that occasionally she does feel short of breath. She denies any fall or injury. She denies any chest pain, fever, nausea, vomiting, diarrhea, leg swelling. She denies any recent travel, recent surgery, immobilization, hormone use. She has a past medical history of hypertension, migraines, nephrolithiasis. No allergies to medications. - Related Data Home Medications Medication Instructions Recorded Confirmed Last Taken Aspirin [Aspirin BABY CHEW TAB] 81 mg PO DAILY 08/24/19 08/24/19 1 Day Ago ~08/23/19 Atorvastatin [Lipitor Tab] 40 mg PO DAILY 08/24/19 08/24/19 1 Day Ago ~08/23/19 Losartan Potassium 50 mg PO DAILY 08/24/19 08/24/19 1 Day Ago ~08/23/19 Previous Rx's Medication Instructions Recorded Last Taken Type Butalb/Acetaminophen/Caffeine 1 cap PO Q6HR PRN #10 cap 03/01/19 1 Day Ago Rx [Fioricet 50-300-40 mg CAP] ~08/23/19 Naproxen [EC-Naproxen] 500 mg PO BID PRN #20 tablet. 11/03/19 Unknown Rx Prednisone [predniSONE 10 mg 10 mg PO .TAPER #1 tab.ds.pk 11/03/19 Unknown Rx (6-Day Pack, 21 Tabs)] methOCARBAMOL [Robaxin TAB] 500 mg PO BID PRN #14 tab 11/03/19 Unknown Rx Allergies Allergy/AdvReac Type Severity Reaction Status Date / Time No Known Allergies Allergy Verified 11/03/19 09:47 ED Review of Systems ROS: Stated complaint: RT SIDE PAINS Other details as noted in HPI Comment: All other systems reviewed and negative ED Past Medical Hx - Past Medical History Hx Hypertension: No Hx Heart Attack/AMI: No Hx Congestive Heart Failure: No Hx Diabetes: No Hx Renal Disease: Yes (kidney stones) Hx Headaches / Migraines: Yes (MIGRAINES) Hx Kidney Stones: Yes Hx Asthma: No Hx COPD: No Additional medical history: As far as I can tell there were no stones found on retrograde urethrogram prior to left ureteral stent. There was some edema noted. There are no stones in the left kidney per prior CT examination. - Surgical History Hx Cholecystectomy: Yes Additional Surgical History: TUBAL LIGATION AND REVERSAL. . KIDNEY STONE REMOVED. urethral stents - Social History Smoking Status: Never Smoker Substance Use Type: None - Medications Home Medications: Home Medications Medication Instructions Recorded Confirmed Last Taken Type Butalb/Acetaminophen/Caffeine 1 cap PO Q6HR PRN #10 cap 03/01/19 08/24/19 1 Day Ago Rx [Fioricet 50-300-40 mg CAP] ~08/23/19 Aspirin [Aspirin BABY CHEW TAB] 81 mg PO DAILY 08/24/19 08/24/19 1 Day Ago History ~08/23/19 Atorvastatin [Lipitor Tab] 40 mg PO DAILY 08/24/19 08/24/19 1 Day Ago History ~08/23/19 Losartan Potassium 50 mg PO DAILY 08/24/19 08/24/19 1 Day Ago History ~08/23/19 Naproxen [EC-Naproxen] 500 mg PO BID PRN #20 tablet.dr 11/03/19 Unknown Rx Prednisone [predniSONE 10 mg 10 mg PO .TAPER #1 tab.ds.pk 11/03/19 Unknown Rx (6-Day Pack, 21 Tabs)] methOCARBAMOL [Robaxin TAB] 500 mg PO BID PRN #14 tab 11/03/19 Unknown Rx ED Physical Exam - General Limitations: No Limitations General appearance: alert, in no apparent distress - Head Head exam: Present: atraumatic, normocephalic - Eye Eye exam: Present: normal appearance - ENT ENT exam: Present: mucous membranes moist - Neck Neck exam: Present: normal inspection, full ROM. Absent: tenderness - Respiratory Respiratory exam: Present: normal lung sounds bilaterally. Absent: respiratory distress, wheezes, rales, rhonchi, stridor, chest wall tenderness, accessory muscle use, decreased breath sounds, prolonged expiratory - Cardiovascular Cardiovascular Exam: Present: regular rate, normal rhythm, normal heart sounds. Absent: systolic murmur, diastolic murmur, rubs, gallop - Back Exam Back exam: Present: normal inspection, full ROM. Absent: CVA tenderness (R), CVA tenderness (L), paraspinal tenderness, vertebral tenderness - Neurological Exam Neurological exam: Present: alert, oriented X3, CN II-XII intact, normal gait. Absent: motor sensory deficit - Psychiatric Psychiatric exam: Present: normal affect, normal mood - Skin Skin exam: Present: warm, dry, intact ED Course Vital Signs 11/03/19 11/03/19 11/03/19 09:50 16:50 16:56 Temperature 98.2 F Pulse Rate 73 61 Respiratory 20 18 Rate Blood Pressure 148/92 137/84 O2 Sat by Pulse 98 99 Oximetry 11/03/19 11/03/19 17:10 17:24 Temperature Pulse Rate Respiratory 18 18 Rate Blood Pressure O2 Sat by Pulse 99 Oximetry ED Medical Decision Making - Lab Data Result diagrams: 11/03/19 12:10 11/03/19 12:10 Lab Results 11/03/19 11/03/19 11/03/19 Range/Units 10:01 12:10 12:10 WBC 5.5 (4.5-11.0) K/mm3 RBC 4.38 (3.65-5.03) M/mm3 Hgb 12.8 (10.1-14.3) gm/dl Hct 38.2 (30.3-42.9) % MCV 87 (79-97) fl MCH 29 (28-32) pg MCHC 34 (30-34) % RDW 15.0 (13.2-15.2) % Plt Count 241 (140-440) K/mm3 Lymph % (Auto) 35.7 H (13.4-35.0) % Potter % (Auto) 8.7 H (0.0-7.3) % Eos % (Auto) 0.9 (0.0-4.3) % Baso % (Auto) 0.5 (0.0-1.8) % Lymph # 2.0 (1.2-5.4) K/mm3 Potter # 0.5 (0.0-0.8) K/mm3 Eos # 0.1 (0.0-0.4) K/mm3 Baso # 0.0 (0.0-0.1) K/mm3 Seg Neutrophils % 54.2 (40.0-70.0) % Seg Neutrophils # 3.0 (1.8-7.7) K/mm3 D-Dimer 165.30 (0-234) ng/mlDDU Sodium (137-145) mmol/L Potassium (3.6-5.0) mmol/L Chloride (98-107) mmol/L Carbon Dioxide (22-30) mmol/L Anion Gap mmol/L BUN (7-17) mg/dL Creatinine (0.6-1.2) mg/dL Estimated GFR ml/min BUN/Creatinine Ratio % Glucose (65-100) mg/dL Calcium (8.4-10.2) mg/dL Total Bilirubin (0.1-1.2) mg/dL AST (5-40) units/L ALT (7-56) units/L Alkaline Phosphatase (35-129) units/L Troponin T (0.00-0.029) ng/mL C-Reactive Protein (0.00-1.30) mg/dL Total Protein (6.3-8.2) g/dL Albumin (3.9-5) g/dL Albumin/Globulin Ratio % HCG, Qual (Negative) Urine Color Yellow (Yellow) Urine Turbidity Clear (Clear) Urine pH 6.0 (5.0-7.0) Ur Specific [place] 1.017 (1.003-1.030) Urine Protein <15 mg/dl (Negative) mg/dL Urine Glucose (UA) Neg (Negative) mg/dL Urine Ketones Neg (Negative) mg/dL Urine Blood Neg (Negative) Urine Nitrite Neg (Negative) Urine Bilirubin Neg (Negative) Urine Urobilinogen < 2.0 (<2.0) mg/dL Ur Leukocyte Esterase Neg (Negative) Urine WBC (Auto) 2.0 (0.0-6.0) /HPF Urine RBC (Auto) 1.0 (0.0-6.0) /HPF U Epithel Cells (Auto) 5.0 (0-13.0) /HPF Urine Mucus 3+ /HPF Urine HCG, Qual Negative (Negative) 11/03/19 11/03/19 Range/Units 12:10 12:10 WBC (4.5-11.0) K/mm3 RBC (3.65-5.03) M/mm3 Hgb (10.1-14.3) gm/dl Hct (30.3-42.9) % MCV (79-97) fl MCH (28-32) pg MCHC (30-34) % RDW (13.2-15.2) % Plt Count (140-440) K/mm3 Lymph % (Auto) (13.4-35.0) % Potter % (Auto) (0.0-7.3) % Eos % (Auto) (0.0-4.3) % Baso % (Auto) (0.0-1.8) % Lymph # (1.2-5.4) K/mm3 Potter # (0.0-0.8) K/mm3 Eos # (0.0-0.4) K/mm3 Baso # (0.0-0.1) K/mm3 Seg Neutrophils % (40.0-70.0) % Seg Neutrophils # (1.8-7.7) K/mm3 D-Dimer (0-234) ng/mlDDU Sodium 142 (137-145) mmol/L Potassium 4.8 (3.6-5.0) mmol/L Chloride 104.2 (98-107) mmol/L Carbon Dioxide 20 L (22-30) mmol/L Anion Gap 23 mmol/L BUN 12 (7-17) mg/dL Creatinine 0.6 (0.6-1.2) mg/dL Estimated GFR > 60 ml/min BUN/Creatinine Ratio 20 % Glucose 83 (65-100) mg/dL Calcium 9.3 (8.4-10.2) mg/dL Total Bilirubin 0.30 (0.1-1.2) mg/dL AST 31 (5-40) units/L ALT 16 (7-56) units/L Alkaline Phosphatase 82 (35-129) units/L Troponin T < 0.010 (0.00-0.029) ng/mL C-Reactive Protein 0.30 (0.00-1.30) mg/dL Total Protein 7.3 (6.3-8.2) g/dL Albumin 3.7 L (3.9-5) g/dL Albumin/Globulin Ratio 1.0 % HCG, Qual Negative (Negative) Urine Color (Yellow) Urine Turbidity (Clear) Urine pH (5.0-7.0) Ur Specific [place] (1.003-1.030) Urine Protein (Negative) mg/dL Urine Glucose (UA) (Negative) mg/dL Urine Ketones (Negative) mg/dL Urine Blood (Negative) Urine Nitrite (Negative) Urine Bilirubin (Negative) Urine Urobilinogen (<2.0) mg/dL Ur Leukocyte Esterase (Negative) Urine WBC (Auto) (0.0-6.0) /HPF Urine RBC (Auto) (0.0-6.0) /HPF U Epithel Cells (Auto) (0-13.0) /HPF Urine Mucus /HPF Urine HCG, Qual (Negative) - EKG Data EKG shows normal: sinus rhythm, intervals, QRS complexes, ST-T waves Rate: normal - EKG Data 11/03/19 16:32 LAD no STEMI no acute signs of ischemia - Radiology Data Radiology results: report reviewed CTA chest with contrast INDICATION : pleuritic pain, SOB. TECHNIQUE: Axial imaging performed through the chest, with contrast bolus timing set to maximize opacification of the pulmonary arteries. 3-plane MIP reformatted images were obtained. All CT scans at this location are performed using CT dose reduction for ALARA by means of automated exposure control. 100 mL of intravenous contrast administered. COMPARISON: CT chest from 08/04/2010 FINDINGS: Bolus: Contrast bolus timing is adequate. PTE: No filling defect is present to suggest PTE. Mediastinum: Heart and great vessels appear normal. No pathologic mediastinal adenopathy. Lungs: Lungs are clear. Upper abdomen: Limited imaging of the upper abdomen shows nothing acute. Bones: Degenerative changes in the spine with nothing acute. IMPRESSION: Negative for PTE. Clear lungs. Signer Name: Rip Dunbar MD Signed: 11/03/2019 4:09 PM Workstation Name: [id number] Transcribed By: AKHIL Dictated By: Rip Dunbar MD Electronically Authenticated By: Rip Dunbar MD Signed Date/Time: 11/03/19 1609 DD/ 1607 TD/TT: - Medical Decision Making Patient is a 44-year-old female presents emergency room with complaints of right upper back pain that began 5 days ago. Patient states that she feels significant pain when she takes a deep breath in. States that when she lays on that side the pain increases. She states that occasionally she does feel short of breath. She denies any fall or injury. She denies any chest pain, fever, nausea, vomiting, diarrhea, leg swelling. She denies any recent travel, recent surgery, immobilization, hormone use. She has a past medical history of hypertension, migraines, nephrolithiasis. No allergies to medications. VSS. labs are normal. troponin is negative. UA is WNL. EKG with LAD otherwise normal. CT angio chest ordered to r/o PE/aortic dissection/PNA: IMPRESSION: Negative for PTE. Clear lungs. symptoms appear most consistent with pleuritis. pt given decadron and ibuprofen while in the ED. given prescription for naproxen, robaxin, and prednisone. advised pt Please take medication as prescribed. Do not drive, operate heavy machinery, or work while taking muscle relaxer (robaxin) due to potential for drowsiness. Follow-up with a primary care doctor. Return to emergency room for any new or worsening symptoms. - Differential Diagnosis PE, pleurisy, pleural effusion, CHF, ACS, aortic dissection, muscle strain Critical care attestation.: If time is entered above; I have spent that time in minutes in the direct care of this critically ill patient, excluding procedure time. ED Disposition Clinical Impression: Upper back pain on right side, Pleurisy Disposition: DC- TO HOME OR SELFCARE Is pt being admited?: No Does the pt Need Aspirin: No Condition: Stable Instructions: Pleurisy (ED), Muscle Strain (ED) Additional Instructions: Please take medication as prescribed. Do not drive, operate heavy machinery, or work while taking muscle relaxer (robaxin) due to potential for drowsiness. Follow-up with a primary care doctor. Return to emergency room for any new or worsening symptoms. Prescriptions: Naproxen [EC-Naproxen] 500 mg PO BID PRN #20 tablet. PRN Reason: pain Prednisone [predniSONE 10 mg (6-Day Pack, 21 Tabs)] 10 mg PO .TAPER #1 tab.ds.pk methOCARBAMOL [Robaxin TAB] 500 mg PO BID PRN #14 tab PRN Reason: pain Referrals: KARRIE HAZEL MD [Primary Care Provider] - 2-3 Days Time of Disposition: 16:29 Print Language: SWAZI
[2019-11-03 17:18] VITALS: BP 137/84
== END 2019-11-03 17:10 | disposition home or self-care (01) ==
LOC: ED 09:40
DX: R09.1 Pleurisy (principal); M54.6 Pain in thoracic spine; G43.909 Migraine, unspecified, not intractable, without status migrainosus; Z87.442 Personal history of urinary calculi; Z90.49 Acquired absence of other specified parts of digestive tract; Z98.51 Tubal ligation status; Z98.890 Other specified postprocedural states; Z79.899 Other long term (current) drug therapy
CPT/HCPCS: 36415; 71275; 80053; 81001; 81025; 84484; 84703; 85025; 85379; 86140; 93005; 96372; 99284; J1100; Q9967

== ENCOUNTER 2019-11-29 11:23 | Emergency (ER) | payer OTHER ==
--- NOTE | 2019-11-29 11:30 | Emergency Department Report ---
Blank Doc - Documentation Documentation: 44-year-old female that presents with vaginal bleeding and tiredness/fatigue. Stated goes about since 9 am has went by 4 tampons and 4 pads. This initial assessment/diagnostic orders/clinical plan/treatment(s) is/are subject to change based on patient's health status, clinical progression and re- assessment by fellow clinical providers in the ED. Further treatment and workup at subsequent clinical providers discretion. Patient/guardians urged not to elope from the ED as their condition may be serious if not clinically assessed and managed. Initial orders include: 1- Patient sent to [facility] for further evaluation and treatment 2- labs 3- UA
[2019-11-29 11:34] VITALS: BP 141/88
[2019-11-29 13:08] LABS: Basophils % (Auto) 0.4 % (0.0-1.8); Eosinophils # (Auto) 0.1 K/mm3 (0.0-0.4); Eosinophils % (Auto) 1.5 % (0.0-4.3); Hemoglobin 11.5 gm/dl (10.1-14.3); Lymphocytes # (Auto) 1.6 K/mm3 (1.2-5.4); Lymphocytes % (Auto) 25.2 % (13.4-35.0); Mean Corpuscular HGB Conc 33 % (30-34); Mean Corpuscular Volume 86 fl (79-97); Monocytes # (Auto) 0.5 K/mm3 (0.0-0.8); Monocytes % (Auto) 8.7 % (0.0-7.3); Platelet Count 223 K/mm3 (140-440); Red Blood Count 4.07 M/mm3 (3.65-5.03)
--- NOTE | 2019-11-29 14:22 | Emergency Department Report ---
ED Female HPI - General Chief complaint: Vaginal Bleeding Stated complaint: BLEEDING HEAVY Time Seen by Provider: 11/29/19 11:25 Source: patient Mode of arrival: Ambulatory Limitations: No Limitations - History of Present Illness Initial comments: 44-year-old female presents to the emergency room complaining of vaginal bleeding. Patient reports that she has not had a normal menstrual period in the last 2 years. Patient states that she started bleeding August 2019 and bled for 39 days straight. Patient states at that time her primary care provider place her on Provera x2 equals 14 days and then was placed on control. Patient states that the bleeding has stopped the proximal around October 01. Patient states that this morning at 2 AM she started having some pelvic cramping and bleeding that she noticed was brownish. As she laid back down and woke up and about 2 hours she had saturated a full panty liner. Patient states then she placed a super tampon in with a long maxi pad and within 2 hours she had soaked through. Patient states that she was returning back from taking her daughter to work she felt a gush of fluids in her vaginal area and has soaked through tampon and pad and bled through to her seats in her car. Patient states that she denies lightheadedness any shortness of breath no chest pain but does feel a little tired. Patient reports that she is 11 para 7 with 1 stillborn and 3 miscarriages. Patient does not have a 3D MODELER. Patient denies any past medical history currently takes no medications on a daily basis and has no known drug allergies. She does report the cramping is still present but the bleeding has decreased since being here in the ER. Complaint: vaginal bleeding - Related Data Home Medications Medication Instructions Recorded Confirmed Last Taken Aspirin [Aspirin BABY CHEW TAB] 81 mg PO DAILY 08/24/19 08/24/19 1 Day Ago ~08/23/19 Atorvastatin [Lipitor Tab] 40 mg PO DAILY 08/24/19 08/24/19 1 Day Ago ~08/23/19 Losartan Potassium 50 mg PO DAILY 08/24/19 08/24/19 1 Day Ago ~08/23/19 Previous Rx's Medication Instructions Recorded Last Taken Type Butalb/Acetaminophen/Caffeine 1 cap PO Q6HR PRN #10 cap 03/01/19 1 Day Ago Rx [Fioricet 50-300-40 mg CAP] ~08/23/19 Naproxen [EC-Naproxen] 500 mg PO BID PRN #20 tablet. 11/03/19 Unknown Rx Prednisone [predniSONE 10 mg 10 mg PO .TAPER #1 tab.ds.pk 11/03/19 Unknown Rx (6-Day Pack, 21 Tabs)] methOCARBAMOL [Robaxin TAB] 500 mg PO BID PRN #14 tab 11/03/19 Unknown Rx Allergies Allergy/AdvReac Type Severity Reaction Status Date / Time No Known Allergies Allergy Verified 11/03/19 09:47 ED Review of Systems ROS: Stated complaint: BLEEDING HEAVY Other details as noted in HPI ED Past Medical Hx - Past Medical History Previous Medical History?: Yes Hx Hypertension: No Hx Heart Attack/AMI: No Hx Congestive Heart Failure: No Hx Diabetes: No Hx Renal Disease: Yes (kidney stones) Hx Headaches / Migraines: Yes (MIGRAINES) Hx Kidney Stones: Yes Hx Asthma: No Hx COPD: No Additional medical history: As far as I can tell there were no stones found on retrograde urethrogram prior to left ureteral stent. There was some edema noted. There are no stones in the left kidney per prior CT examination. - Surgical History Past Surgical History?: Yes Hx Cholecystectomy: Yes Additional Surgical History: TUBAL LIGATION AND REVERSAL. . KIDNEY STONE REMOVED. urethral stents - Social History Smoking Status: Never Smoker Substance Use Type: None - Medications Home Medications: Home Medications Medication Instructions Recorded Confirmed Last Taken Type Butalb/Acetaminophen/Caffeine 1 cap PO Q6HR PRN #10 cap 03/01/19 08/24/19 1 Day Ago Rx [Fioricet 50-300-40 mg CAP] ~08/23/19 Aspirin [Aspirin BABY CHEW TAB] 81 mg PO DAILY 08/24/19 08/24/19 1 Day Ago History ~08/23/19 Atorvastatin [Lipitor Tab] 40 mg PO DAILY 08/24/19 08/24/19 1 Day Ago History ~08/23/19 Losartan Potassium 50 mg PO DAILY 08/24/19 08/24/19 1 Day Ago History ~08/23/19 Naproxen [EC-Naproxen] 500 mg PO BID PRN #20 tablet. 11/03/19 Unknown Rx Prednisone [predniSONE 10 mg 10 mg PO .TAPER #1 tab.dsRonnpk 11/03/19 Unknown Rx (6-Day Pack, 21 Tabs)] methOCARBAMOL [Robaxin TAB] 500 mg PO BID PRN #14 tab 11/03/19 Unknown Rx ED Physical Exam - General Limitations: No Limitations General appearance: alert, in no apparent distress - Head Head exam: Present: atraumatic, normocephalic - Eye Eye exam: Present: normal appearance - ENT ENT exam: Present: normal exam - Neck Neck exam: Present: normal inspection, full ROM - Respiratory Respiratory exam: Present: normal lung sounds bilaterally - Cardiovascular Cardiovascular Exam: Present: regular rate - GI/Abdominal GI/Abdominal exam: Present: soft. Absent: distended, tenderness, guarding - Extremities Exam Extremities exam: Present: normal inspection, full ROM - Back Exam Back exam: Present: normal inspection - Neurological Exam Neurological exam: Present: alert, oriented X3, normal gait - Psychiatric Psychiatric exam: Present: normal affect, normal mood - Skin Skin exam: Present: warm, dry, intact, normal color. Absent: rash ED Course Vital Signs 11/29/19 11:30 Temperature 98 F Pulse Rate 85 Respiratory 16 Rate Blood Pressure 141/88 O2 Sat by Pulse 96 Oximetry ED Medical Decision Making - Lab Data Result diagrams: 11/29/19 12:53 Laboratory Tests 11/29/19 11/29/19 12:53 16:07 WBC 6.3 RBC 4.07 Hgb 11.5 Hct 35.0 MCV 86 MCH 28 MCHC 33 RDW 15.0 Plt Count 223 Lymph % (Auto) 25.2 [place] % (Auto) 8.7 H Eos % (Auto) 1.5 Baso % (Auto) 0.4 Lymph # (Auto) 1.6 [place] # (Auto) 0.5 Eos # (Auto) 0.1 Baso # (Auto) 0.0 Seg Neutrophils % 64.2 Seg Neutrophils # 4.1 Urine Color Maria Ines Urine Turbidity Clear Urine pH 5.0 Ur Specific [place] 1.033 H Urine Protein 30 mg/dl Urine Glucose (UA) Neg Urine Ketones Neg Urine Blood Neg Urine Nitrite Neg Ur Reducing Substances Not Reportable Urine Bilirubin Neg Urine Ictotest Not Reportable Urine Urobilinogen 4.0 Ur Leukocyte Esterase Neg Urine WBC (Auto) < 1.0 Urine RBC (Auto) 2.0 U Epithel Cells (Auto) < 1.0 Urine Bacteria (Auto) 1+ Urine Mucus 3+ Urine HCG, Qual Negative - Medical Decision Making 44-year-old female presents to the emergency room complaining of vaginal bleeding. Patient reports that she has not had a normal menstrual period in the last 2 years. Patient states that she started bleeding August 2019 and bled for 39 days straight. Patient states at that time her primary care provider place her on Provera x2 equals 14 days and then was placed on control. Patient states that the bleeding has stopped the proximal around October 01. Patient states that this morning at 2 AM she started having some pelvic cramping and bleeding that she noticed was brownish. As she laid back down and woke up and about 2 hours she had saturated a full panty liner. Patient states then she placed a super tampon in with a long maxi pad and within 2 hours she had soaked through. Patient states that she was returning back from taking her daughter to work she felt a gush of fluids in her vaginal area and has soaked through tampon and pad and bled through to her seats in her car. Patient states that she denies lightheadedness any shortness of breath no chest pain but does feel a little tired. Patient reports that she is 11 para 7 with 1 stillborn and 3 miscarriages. Patient does not have a 3D MODELER. Patient denies any past medical history currently takes no medications on a daily basis and has no known drug allergies. She does report the cramping is still present but the bleeding has decreased since being here in the ER. CBC is within normal limits no signs of acute blood loss. Urinalysis and urine test is pending. Urinalysis is negative for any acute infection test is negative. Sky mmend patient to follow-up with an 3D MODELER I have listed several below in her discharge summary. Patient can take ibuprofen, naproxen for pelvic cramping. - Differential Diagnosis Fibroids, , intrauterine cancer Critical care attestation.: If time is entered above; I have spent that time in minutes in the direct care of this critically ill patient, excluding procedure time. ED Disposition Clinical Impression: Menorrhagia, Postmenopausal bleeding Disposition: DC-01 TO HOME OR SELFCARE Is pt being admited?: No Does the pt Need Aspirin: No Condition: Stable Instructions: Menorrhagia (ED) Additional Instructions: Your labs show that you are not anemic. I would like you to follow-up with an 3D MODELER as this is important for postmenopausal women to have vaginal bleeding. I have listed several below for your convenience. You can take ibuprofen or Tylenol or even naproxen for your pelvic cramping. Referrals: KAYLA ONEILL III, INSTRUCTOR [employer] INSPECTION- [Primary Care Provider] - 3-5 Days [facility] [Provider Group] - 3-5 Days [facility]ANICAL [facility]PER[facility], [facility] [Provider Group] - 3-5 Days [facility] [Provider Group] - 3-5 Days Forms: Work/School Release Form(ED)
[2019-11-29 16:20] LABS: HCG Qualitative,Urine Negative (Negative)
[2019-11-29 16:22] LABS: Bacteria,Urine 1+ /HPF (Negative); Bilirubin,Urine NEG (Negative); Blood,Urine NEG (Negative); Color,Urine Amber (Yellow); Mucus,Urine 3+ /HPF; WBC,Urine < 1.0 /HPF (0.0-6.0)
== END 2019-11-29 18:07 | disposition home or self-care (01) ==
LOC: ED 11:23
DX: N95.0 Postmenopausal bleeding (principal); G43.909 Migraine, unspecified, not intractable, without status migrainosus; N20.0 Calculus of kidney; Z90.49 Acquired absence of other specified parts of digestive tract; Z98.51 Tubal ligation status; Z98.890 Other specified postprocedural states; Z79.82 Long term (current) use of aspirin; Z79.899 Other long term (current) drug therapy
CPT/HCPCS: 36415; 81001; 81025; 85025; 99283

== ENCOUNTER 2020-06-29 10:29 | Emergency (ER) | payer OTHER ==
[2020-06-29] MEDS ORDERED: SODIUM CHLORIDE 0.9% 1000 ML 1,000 ML IV ONE (12:49)
[2020-06-29 13:16] LABS: Basophils % (Auto) 0.5 % (0.0-1.8); Eosinophils # (Auto) 0.1 K/mm3 (0.0-0.4); Eosinophils % (Auto) 1.4 % (0.0-4.3); Hematocrit 35.3 % (30.3-42.9); Hemoglobin 11.5 gm/dl (10.1-14.3); Lymphocytes # (Auto) 1.7 K/mm3 (1.2-5.4); Lymphocytes % (Auto) 27.4 % (13.4-35.0); Mean Corpuscular HGB Conc 33 % (30-34); Mean Corpuscular Volume 86 fl (79-97); Monocytes # (Auto) 0.5 K/mm3 (0.0-0.8); Monocytes % (Auto) 8.5 % (0.0-7.3); Platelet Count 210 K/mm3 (140-440); Red Blood Count 4.12 M/mm3 (3.65-5.03); Red Cell Distribution Width 15.8 % (13.2-15.2)
[2020-06-29] MEDS ORDERED: KETOROLAC 30 MG/1 ML INJ IV ONE (13:18)
--- NOTE | 2020-06-29 14:45 | Emergency Department Report ---
ED Female HPI - General Chief complaint: Vaginal Bleeding Stated complaint: VAGINAL BLEEDING Time Seen by Provider: 06/29/20 12:22 Source: patient Mode of arrival: Ambulatory Limitations: No Limitations - History of Present Illness Initial comments: This is a 45-year-old female with no prior medical history presents ED complaining of vaginal bleeding x2 weeks and left-sided flank pain x1 week. Patient states that she has not had a menstrual cycle for the past 7 months and 2 weeks ago she started having vaginal bleeding. Patient states she has been having heavy bleeding with blood clots for the past 2 weeks just not resolving. Patient states that she has had a bit of fatigue but no other symptoms. Patient states that last week she started to have left-sided flank pain that is worsening. Patient states that she does have a history of kidney stones but has has it removed in the past. Patient states that she has had similar vaginal bleeding episode last year which she followed up with [facility] T[facility]ER and all her test was normal. Patient states she has not been experiencing anyDizziness, fatigue, headaches or any symptoms MD Complaint: vaginal bleeding -: Gradual, week(s) (2) - Related Data Home Medications Medication Instructions Recorded Confirmed Last Taken Aspirin [Aspirin BABY CHEW TAB] 81 mg PO DAILY 08/24/19 08/24/19 1 Day Ago ~08/23/19 Atorvastatin [Lipitor Tab] 40 mg PO DAILY 08/24/19 08/24/19 1 Day Ago ~08/23/19 Losartan Potassium 50 mg PO DAILY 08/24/19 08/24/19 1 Day Ago ~08/23/19 Previous Rx's Medication Instructions Recorded Last Taken Type Butalb/Acetaminophen/Caffeine 1 cap PO Q6HR PRN #10 cap 03/01/19 1 Day Ago Rx [Fioricet 50-300-40 mg CAP] ~08/23/19 Prednisone [predniSONE 10 mg 10 mg PO .TAPER #1 tab.ds.pk 11/03/19 Unknown Rx (6-Day Pack, 21 Tabs)] methOCARBAMOL [Robaxin TAB] 500 mg PO BID PRN #14 tab 11/03/19 Unknown Rx Naproxen [EC-Naproxen] 500 mg PO BID PRN #30 tablet.dr 06/29/20 Unknown Rx medroxyPROGESTERone ACETATE 10 mg PO DAILY 10 Days #10 tablet 06/29/20 Unknown Rx [Provera] traMADoL [Ultram 50 MG tab] 50 mg PO Q6HR PRN #20 tablet 06/29/20 Unknown Rx Allergies Allergy/AdvReac Type Severity Reaction Status Date / Time No Known Allergies Allergy Verified 11/03/19 09:47 ED Review of Systems ROS: Stated complaint: VAGINAL BLEEDING Other details as noted in HPI Comment: All other systems reviewed and negative ED Past Medical Hx - Past Medical History Previous Medical History?: Yes Hx Hypertension: No Hx Heart Attack/AMI: No Hx Congestive Heart Failure: No Hx Diabetes: No Hx Renal Disease: Yes (kidney stones) Hx Headaches / Migraines: Yes (MIGRAINES) Hx Kidney Stones: Yes Hx Asthma: No Hx COPD: No Additional medical history: As far as I can tell there were no stones found on retrograde urethrogram prior to left ureteral stent. There was some edema noted. There are no stones in the left kidney per prior CT examination. - Surgical History Past Surgical History?: Yes Hx Cholecystectomy: Yes Additional Surgical History: TUBAL LIGATION AND REVERSAL. . KIDNEY STONE REMOVED. urethral stents - Social History Smoking Status: Never Smoker Substance Use Type: None - Medications Home Medications: Home Medications Medication Instructions Recorded Confirmed Last Taken Type Butalb/Acetaminophen/Caffeine 1 cap PO Q6HR PRN #10 cap 03/01/19 08/24/19 1 Day Ago Rx [Fioricet 50-300-40 mg CAP] ~08/23/19 Aspirin [Aspirin BABY CHEW TAB] 81 mg PO DAILY 08/24/19 08/24/19 1 Day Ago Histo ry ~08/23/19 Atorvastatin [Lipitor Tab] 40 mg PO DAILY 08/24/19 08/24/19 1 Day Ago History ~08/23/19 Losartan Potassium 50 mg PO DAILY 08/24/19 08/24/19 1 Day Ago History ~08/23/19 Prednisone [predniSONE 10 mg 10 mg PO .TAPER #1 tab.ds.pk 11/03/19 Unknown Rx (6-Day Pack, 21 Tabs)] methOCARBAMOL [Robaxin TAB] 500 mg PO BID PRN #14 tab 11/03/19 Unknown Rx Naproxen [EC-Naproxen] 500 mg PO BID PRN #30 tablet. 06/29/20 Unknown Rx medroxyPROGESTERone ACETATE 10 mg PO DAILY 10 Days #10 tablet 06/29/20 Unknown Rx [Provera] traMADoL [Ultram 50 MG tab] 50 mg PO Q6HR PRN #20 tablet 06/29/20 Unknown Rx ED Physical Exam - General Limitations: No Limitations General appearance: alert, in no apparent distress - Head Head exam: Present: atraumatic, normocephalic - Eye Eye exam: Present: normal appearance - ENT ENT exam: Present: mucous membranes moist - Neck Neck exam: Present: normal inspection - Respiratory Respiratory exam: Present: normal lung sounds bilaterally. Absent: respiratory distress - Cardiovascular Cardiovascular Exam: Present: regular rate, normal rhythm. Absent: systolic murmur, diastolic murmur, rubs, gallop - GI/Abdominal GI/Abdominal exam: Present: soft, normal bowel sounds - Extremities Exam Extremities exam: Present: normal inspection - Back Exam Back exam: Present: normal inspection, full ROM, CVA tenderness (L). Absent: CVA tenderness (R) - Neurological Exam Neurological exam: Present: alert, oriented X3, normal gait - Psychiatric Psychiatric exam: Present: normal affect, normal mood - Skin Skin exam: Present: warm, dry, intact, normal color. Absent: rash ED Course Vital Signs 06/29/20 11:12 Temperature 98.4 F Pulse Rate 72 Respiratory 15 Rate Blood Pressure 151/87 O2 Sat by Pulse 98 Oximetry ED Medical Decision Making - Lab Data Result diagrams: 06/29/20 13:05 Laboratory Last Values WBC 6.2 K/mm3 (4.5-11.0) 06/29/20 13:05 RBC 4.12 M/mm3 (3.65-5.03) 06/29/20 13:05 Hgb 11.5 gm/dl (10.1-14.3) 06/29/20 13:05 Hct 35.3 % (30.3-42.9) 06/29/20 13:05 MCV 86 fl (79-97) 06/29/20 13:05 MCH 28 pg (28-32) 06/29/20 13:05 MCHC 33 % (30-34) 06/29/20 13:05 RDW 15.8 % (13.2-15.2) H 06/29/20 13:05 Plt Count 210 K/mm3 (140-440) 06/29/20 13:05 Lymph % (Auto) 27.4 % (13.4-35.0) 06/29/20 13:05 [place] % (Auto) 8.5 % (0.0-7.3) H 06/29/20 13:05 Eos % (Auto) 1.4 % (0.0-4.3) 06/29/20 13:05 Baso % (Auto) 0.5 % (0.0-1.8) 06/29/20 13:05 Lymph # (Auto) 1.7 K/mm3 (1.2-5.4) 06/29/20 13:05 [place] # (Auto) 0.5 K/mm3 (0.0-0.8) 06/29/20 13:05 Eos # (Auto) 0.1 K/mm3 (0.0-0.4) 06/29/20 13:05 Baso # (Auto) 0.0 K/mm3 (0.0-0.1) 06/29/20 13:05 Seg Neutrophils % 62.2 % (40.0-70.0) 06/29/20 13:05 Seg Neutrophils # 3.9 K/mm3 (1.8-7.7) 06/29/20 13:05 HCG, Quant 0.947 mIU/mL (0-4) 06/29/20 13:05 Urine Color Red (Yellow) 06/29/20 12:48 Urine Turbidity Slightly-cloudy (Clear) 06/29/20 12:48 Urine pH 5.0 (5.0-7.0) 06/29/20 12:48 Ur Specific [place] 1.027 (1.003-1.030) 06/29/20 12:48 Urine Protein 100 mg/dl mg/dL (Negative) 06/29/20 12:48 Urine Glucose (UA) Neg mg/dL (Negative) 06/29/20 12:48 Urine Ketones Neg mg/dL (Negative) 06/29/20 12:48 Urine Blood Lg (Negative) 06/29/20 12:48 Urine Nitrite Neg (Negative) 06/29/20 12:48 Urine Bilirubin Neg (Negative) 06/29/20 12:48 Urine Urobilinogen < 2.0 mg/dL (<2.0) 06/29/20 12:48 Ur Leukocyte Esterase Neg (Negative) 06/29/20 12:48 Urine WBC (Auto) 4.0 /HPF (0.0-6.0) 06/29/20 12:48 Urine RBC (Auto) > 182.0 /HPF (0.0-6.0) 06/29/20 12:48 Urine Mucus 3+ /HPF 06/29/20 12:48 Blood Type O POSITIVE 06/29/20 13:05 - Radiology Data Radiology results: report reviewed, image reviewed CT ABDOMEN AND PELVIS WITHOUT CONTRAST INDICATION / CLINICAL INFORMATION: flank pain. TECHNIQUE: Axial CT images were obtained through the abdomen and pelvis w ithout IV contrast. All CT scans at this location are performed using CT dose reduction for ALARA by means of automated exposure control. COMPARISON: 07/03/2016 FINDINGS: LOWER CHEST: No significant abnormality. HEPATOBILIARY: Mild hepatomegaly at 18.5 cm without focal hepatic lesion. No significant biliary ductal dilatation. PANCREAS/SPLEEN/ADRENALS: No significant abnormality. GENITOURINARY: Right-sided nonobstructing nephrolithiasis (approximately 4 stones) measuring up to 5 mm. 4.6 cm right renal cyst at the interpolar region. No obstructive uropathy. A tampon is present. The bladder is decompressed limiting evaluation. No significant abnormality of the ureters. GASTROINTESTINAL/MESENTERY: Amount of stool throughout the colon suggests mild constipation. No evidence of acute appendicitis. No bowel obstruction or inflammation. No free air or significant free fluid. RETROPERITONEUM: No s ignificant adenopathy. REPRODUCTIVE ORGANS: No significant abnormality. VASCULAR: Mild atherosclerotic calcification without acute abnormality. BODY WALL: No significant abnormality. SKELETAL SYSTEM: No significant abnormality. IMPRESSION: 1. Mild right-sided nonobstructing nephrolithiasis. No evidence of obstructive uropathy. 2. 4.6 cm right simple renal cyst. 3. Mild hepatomegaly. Signer Name: Truman Capps MD Signed: 06/29/2020 3:18 PM Workstation Name: [id number] Transcribed By: Dictated By: TRUMAN CAPPS III Electronically Authenticated By: TRUMAN CAPPS III Signed Date/Time: 06/29/20 1518 - Medical Decision Making This 25-year-old female presents to ED with abnormal uterine bleeding. H&H within normal limits. Discussed follow-up with matrix supervisor for management. CT scan shows kidney stones and renal cyst. Discussed findings with the patient. Discussed with the patient to follow-up with JEWEL SUPERVISOR,GI as well as nephrology. Overall patient has a life-threatening illness and pain is controlled with pain medication. Patient was just discharged home with pain medication as well as Provera Patient was in no acute distress. Critical care attestation.: If time is entered above; I have spent that time in minutes in the direct care of this critically ill patient, excluding procedure time. ED Disposition Clinical Impression: Nephrolithiasis, Dysfunctional uterine bleeding, Renal cyst, Flank pain Disposition: TO HOME OR SELFCARE Is pt being admited?: No Does the pt Need Aspirin: No Condition: Stable Instructions: Kidney Stones, [id number], Menorrhagia, [id number] Additional Instructions: Make sure to follow up with the primary care physician as discussed. Take all your medications as you've been prescribed. If you have any worsening symptoms or develop new symptoms please return to ED immediately. Prescriptions: Naproxen [EC-Naproxen] 500 mg PO BID PRN #30 tablet.dr PRN Reason: pain medroxyPROGESTERone ACETATE [Provera] 10 mg PO DAILY 10 Days #10 tablet traMADoL [Ultram 50 MG tab] 50 mg PO Q6HR PRN #20 tablet PRN Reason: Pain Referrals: PRIMARY CARE, [Primary Care Provider] - 3-5 Days [facility] [place] [Provider Group] - 3-5 Days [facility] [Provider Group] - 3-5 Days SUE DE DIOS MD [Staff Physician] - 3-5 Days EDUARDA CARTWRIGHT MD [Staff Physician] - 3-5 Days NIKI GORDON PA [Physician Shipmaster] - 3-5 Days IVAN LEDEZMA MD [Staff Physician] - 3-5 Days Forms: Work/School Release Form(ED) Time of Disposition: 16:36
[2020-06-29 15:09] LABS: Bilirubin,Urine NEG (Negative); Blood,Urine LG (Negative); Mucus,Urine 3+ /HPF; Urobilinogen,Urine < 2.0 mg/dL (<2.0)
[2020-06-29 15:10] LABS: Color,Urine Red (Yellow); RBC,Urine > 182.0 /HPF (0.0-6.0)
--- NOTE | 2020-06-29 15:23 | Cat Scan Report ---
CT ABDOMEN AND PELVIS WITHOUT CONTRAST INDICATION / CLINICAL INFORMATION: flank pain. TECHNIQUE: Axial CT images were obtained through the abdomen and pelvis without IV contrast. All CT scans at [facility] location are performed using CT dose reduction for ALARA by means of automated exposure control. COMPARISON: 07/03/2016 FINDINGS: LOWER CHEST: No significant abnormality. HEPATOBILIARY: Mild hepatomegaly at 18.5 cm without focal hepatic lesion. No significant biliary duct al dilatation. PANCREAS/SPLEEN/ADRENALS: No significant abnormality. GENITOURINARY: Right-sided nonobstructing nephrolithiasis (approximately 4 stones) measuring up to 5 mm. 4.6 cm right renal cyst at the interpolar region. No obstructive uropathy. A tampon is present. T he bladder is decompressed limiting evaluation. No significant abnormality of the ureters. GASTROINTESTINAL/MESENTERY: Amount of stool throughout the colon suggests mild constipation. No evide nce of acute appendicitis. No bowel obstruction or inflammation. No free air or significant free flui d. RETROPERITONEUM: No significant adenopathy. REPRODUCTIVE ORGANS: No significant abnormality. VASCULAR: Mild atherosclerotic calcification without acute abnormality. BODY WALL: No significant abnormality. SKELETAL SYSTEM: No significant abnormality. IMPRESSION: 1. Mild right-sided nonobstructing nephrolithiasis. No evidence of obstructive uropathy. 2. 4.6 cm right simple renal cyst. 3. Mild hepatomegaly. Signer Name: Mario Capps MD Signed: 06/29/2020 3:18 PM Workstation Name: [id number]
[2020-06-29 18:48] VITALS: BP 130/72
== END 2020-06-29 18:10 | disposition home or self-care (01) ==
LOC: ED 10:29
DX: N28.1 Cyst of kidney, acquired (principal); N93.8 Other specified abnormal uterine and vaginal bleeding; N20.0 Calculus of kidney; R10.9 Unspecified abdominal pain; G43.909 Migraine, unspecified, not intractable, without status migrainosus; Z90.49 Acquired absence of other specified parts of digestive tract; Z98.51 Tubal ligation status; Z98.890 Other specified postprocedural states; Z79.899 Other long term (current) drug therapy
CPT/HCPCS: 36415; 74176; 81001; 84702; 85025; 86900; 86901; 96361; 96374; 99284; J1885; J7030